=== PATIENT | female | born 1950 | race African-American/Black ===

== ENCOUNTER 2017-11-07 04:17 | Emergency (ER) | payer OTHER, MEDICAID ==
[2017-11-07] MEDS ORDERED: D5 NS 1000 ML 1,000 ML IV ONE (04:19)
[2017-11-07 04:24] VITALS: BMI 46.0
--- NOTE | 2017-11-07 04:25 | DR.GENAD ---
HPI - Complaint/Symptoms Chief Complaint Doctors Comments: Patient states that she was giving herself her insulin and decided to give 10Units; this dose made her glucose to less than 30mg/dl. She was given D50 by EMS; upon arrival her blood glucose 84mg/dl. She was started on D5W, given. Review of medical record patient has bradycardia rate less than 50, and decreased renal function. She is followed by Dr Espinoza mill helper and a lifestyle coordinator is Abdi. PMH - PMH Past Medical History: Diabetes, Renal Disease ROS - Review of Systems Eyes: No Symptoms Reported ENTM: No Symptoms Reported Respiratoy: No Symptoms Reported Cardiovascular: No Symptoms Reported Gastrointestinal/Abdominal: No Symptoms Reported Genitourinary: No Symptoms Reported Neurological: No Symptoms Reported Musculoskeletal: No Symptoms Reported Integumentary: No Symptoms Reported Hematologic/Lymphatic: No Symptoms Reported Endocrine: No Symptoms Reported Psychiatric: No Symptoms Reported All Other Systems: Reviewed and Negative PE - Vital Signs Vitals: Pulse Rate [Apical] 99 Respiratory Rate 16 Blood Pressure [Right Arm] 122/64 Blood Pressure 130/65 O2 Sat by Pulse Oximetry 100 - General General Appearance: Alert, In No Apparent Distress - Head Head Exam: Normal Inspection, Atraumatic - Eyes Eye exam: Normal Appearance, PERRL, EOMI - ENT ENT Exam: Normal Exam External Ear Exam: Normal External Inspection TM/Canal Exam: Bilateral Normal Nose Exam: Normal Nose Exam Mouth Exam: Normal Inspection Throat Exam: Normal Inspection - Chest Chest Inspection: Normal Inspection - Respiratory Respiratory Exam: Normal Lung Sounds Bilat Respiratory Exam: Bilateral Clear to Auscultation - Cardiovascular Cardiovascular Exam: Regular Rate, Normal Rhythm - Abdominal Exam Abdominal Exam: Normal Inspection, Normal Bowel Sounds, Soft Abdominal Tenderness: negative: RUQ, RLQ, LUQ, LLQ, Epigastrium, Suprapubic, Diffuse, Mild, Moderate, Severe, Other - Extremities Extremities Exam: Normal Inspection, Full ROM - Back Back Exam: Normal Inspection - Neurologic Neurological Exam: Alert, Oriented X3, CN II-XII Intact - Psychiatric Psychiatric Exam: Normal Affect, Normal Mood - Skin Skin Exam: Warm, Dry, Intact Course - Treatment Treatment: I spoke with Dr Ruff wound care center consultant for cardiology for Dr Espinoza. He indicated that they will see patient as an outpatient to evaluate her bradycardia. He indicated that she will probably be evaluated for pacemaker. - Reevaluation 1st: Improved ROR - Labs Reviewed Result Diagrams: 11/07/17 04:33 11/07/17 04:33 Laboratory: WBC 4.9 X10^3/uL (3.6-10.0) 11/07/17 04:33 RBC 4.74 X10^6/uL (3.5-5.4) 11/07/17 04:33 Hgb 13.9 g/dL (12.0-16.0) 11/07/17 04:33 Hct 42.4 % (36.0-47.0) 11/07/17 04:33 MCV 89.4 fL (80.0-100.0) 11/07/17 04:33 MCH 29.3 pg (27.0-34.0) 11/07/17 04:33 MCHC 32.8 g/dL (33.0-35.0) L 11/07/17 04:33 RDW 14.4 % (11.6-16.5) 11/07/17 04:33 Plt Count 186 X10^3/uL (150.0-450.0) 11/07/17 04:33 MPV 8.6 fL (7.4-11.0) 11/07/17 04:33 Neut % 43.4 % (42.0-75.0) 11/07/17 04:33 Lymph % 37.9 % (21.0-51.0) 11/07/17 04:33 [place] % 13.9 % (0.0-13.0) H 11/07/17 04:33 Eos % 4.0 % (0.9-2.9) H 11/07/17 04:33 Baso % 0.8 % (0.2-1.0) 11/07/17 04:33 Neut # 2.1 x10^3/uL (2.2-4.8) L 11/07/17 04:33 Lymph # 1.9 X10^3/uL (1.3-2.9) 11/07/17 04:33 [place] # 0.7 x10^3/uL (0.3-0.8) 11/07/17 04:33 Eos # 0.2 x10^3/uL (0.0-0.2) 11/07/17 04:33 Baso # 0.0 X10^3/uL (0.0-0.1) 11/07/17 04:33 Absolute Nucleated RBC 0.1 /100WBC 11/07/17 04:33 Sodium 148 mmol/L (136-145) H 11/07/17 04:33 Corrected Sodium TNP 11/07/17 04:33 Potassium 2.5 mmol/L (3.5-5.1) L* 11/07/17 04:33 Chloride 106 mmol/L (98-107) 11/07/17 04:33 Carbon Dioxide 33.8 mmol/L (21-32) H 11/07/17 04:33 BUN 63 mg/dL (7-18) H 11/07/17 04:33 Creatinine 3.27 mg/dL (0.55-1.02) H 11/07/17 04:33 Est GFR (MDRD) Af Amer 18 (>60) L 11/07/17 04:33 Est GFR (MDRD) Non-Af 15 (>60) L 11/07/17 04:33 Glucose 57 mg/dL (65-99) L 11/07/17 04:33 POC Glucose (mg/dL) 91 mg/dL (65-99) 11/07/17 06:14 Hemoglobin A1c 6.4 % (4.5-6.2) H 11/07/17 04:33 Calcium 8.5 mg/dL (8.5-10.1) 11/07/17 04:33 Corrected Calcium TNP 11/07/17 04:33 Total Bilirubin 0.60 mg/dL (0.2-1.0) 11/07/17 04:33 AST 33 Units/L (15-37) 11/07/17 04:33 ALT 51 Units/L (12-78) 11/07/17 04:33 Alkaline Phosphatase 75 Units/L (46-116) 11/07/17 04:33 Creatine Kinase 435 Units/L (26-192) H 11/07/17 04:33 CK-MB (CK-2) 1.4 ng/mL (0-4.0) 11/07/17 04:33 CK/CKMB % Calc 0.3 % (<4) 11/07/17 04:33 Troponin I 0.02 ng/mL (0-1.5) 11/07/17 04:33 C-Reactive Protein 1.60 mg/L (0-3.0) 11/07/17 04:33 Total Protein 7.4 g/dL (6.4-8.2) 11/07/17 04:33 Albumin 3.6 g/dL (3.4-5.0) 11/07/17 04:33 Globulin 3.8 g/dL (2.5-4.5) 11/07/17 04:33 Albumin/Globulin Ratio 0.9 Ratio (1.1-2.1) L 11/07/17 04:33 - XRAY XRAY Interpreted by: Radiologist (Chest: No acute chest disease identified) - Diagnosis Discharge Problem: Sinus bradycardia, Hypokalemia, Hypoglycemia Chronic renal disease Qualifiers: Chronic kidney disease stage: stage 3 (moderate) Qualified Code(s): N18.3 - Chronic kidney disease, stage 3 (moderate) - Discharge Plan Condition: Stable - Follow ups/Referrals Follow ups/Referrals: NFD,None [Primary Care Provider] - 3 days - Instructions
[2017-11-07 04:43] LABS: BASOPHILS % (AUTO) 0.8 % (0.2-1.0); EOSINOPHILS # (AUTO) 0.2 x10^3/uL (0.0-0.2); HEMATOCRIT 42.4 % (36.0-47.0); HEMOGLOBIN 13.9 g/dL (12.0-16.0); LYMPHOCYTES # (AUTO) 1.9 X10^3/uL (1.3-2.9); LYMPHOCYTES % (AUTO) 37.9 % (21.0-51.0); MEAN CORPUSCULAR HEMOGLOBIN 29.3 pg (27.0-34.0); MEAN CORPUSCULAR HGB CONC 32.8 g/dL (33.0-35.0); MEAN CORPUSCULAR VOLUME 89.4 fL (80.0-100.0); MEAN PLATELET VOLUME 8.6 fL (7.4-11.0); MONOCYTES # (AUTO) 0.7 x10^3/uL (0.3-0.8); MONOCYTES % (AUTO) 13.9 % (0.0-13.0); NEUTROPHILS # (AUTO) 2.1 x10^3/uL (2.2-4.8); NEUTROPHILS % (AUTO) 43.4 % (42.0-75.0); PLATELET COUNT 186 X10^3/uL (150.0-450.0); RED BLOOD COUNT 4.74 X10^6/uL (3.5-5.4); RED CELL DISTRIBUTION WIDTH 14.4 % (11.6-16.5); WHITE BLOOD COUNT 4.9 X10^3/uL (3.6-10.0)
[2017-11-07] MEDS ORDERED: D50W ABBOJECT SYR ONE (04:44)
[2017-11-07] MEDS ORDERED: D50W ABBOJECT SYR IV ONE (04:45)
[2017-11-07 04:48] LABS: BLOOD UREA NITROGEN 63 mg/dL (7-18); CALCIUM 8.5 mg/dL (8.5-10.1); CARBON DIOXIDE 33.8 mmol/L (21-32); CHLORIDE 106 mmol/L (98-107); CREATININE 3.27 mg/dL (0.55-1.02); SODIUM 148 mmol/L (136-145); eGFR BLACK RACES 18 (>60); eGFR NON BLACK RACES 15 (>60)
[2017-11-07 04:52] LABS: ALANINE AMINOTRANSFERASE 51 Units/L (12-78); ALBUMIN 3.6 g/dL (3.4-5.0); ALKALINE PHOSPHATASE 75 Units/L (46-116); ASPARTATE AMINO TRANSFERASE 33 Units/L (15-37); TOTAL PROTEIN 7.4 g/dL (6.4-8.2)
[2017-11-07 04:55] LABS: HEMOGLOBIN A1C 6.4 % (4.5-6.2)
[2017-11-07] MEDS ORDERED: D5 NS 1000 ML 1,000 ML IV SCH (05:00)
[2017-11-07] MEDS ORDERED: K-LYTE EFFERVESCENT PO ONE (05:16)
[2017-11-07] MEDS ORDERED: K-LYTE EFFERVESCENT ONE (05:18)
[2017-11-07] MEDS ORDERED: ATROPINE SULFATE ABBOJECT IVP ONE ×3 (05:19→05:38)
[2017-11-07] MEDS ORDERED: ATROPINE SULFATE ABBOJECT ONE ×2 (05:30→05:33)
[2017-11-07 05:48] LABS: CKMB % 0.3 % (<4); CREATINE KINASE MB 1.4 ng/mL (0-4.0); TROPONIN I 0.02 ng/mL (0-1.5)
--- NOTE | 2017-11-07 06:15 | RAD ---
Examination: Portable AP chest History: Hypoglycemia, hypertension, CHF Comparison reference 09/22/2010 Findings: Normal transverse heart diameter, lungs essentially clear. Mild central vascular pulmonary prominence may be related to the nonstandard technical factors. Impression: No acute chest disease demonstrated. Reported By:
[2017-11-07] MEDS ORDERED: POTASSIUM CHLORIDE LIQ 20 MEQ UDC PO ONE (06:25)
[2017-11-07 07:34] VITALS: BP 170/115
== END 2017-11-07 08:26 | disposition home or self-care (01) ==
LOC: ER 04:19
DX: R00.1 Bradycardia, unspecified (principal); E87.6 Hypokalemia; E16.2 Hypoglycemia, unspecified; N18.3 Chronic kidney disease, stage 3 (moderate)
CPT/HCPCS: 36415; 71010; 80053; 82550; 82553; 83036; 84484; 85025; 86140; 93005; 93010; 96365; 96367; 96374; 96375; 99283; A4222; J3490

== ENCOUNTER 2018-01-04 03:51 | Emergency (ER) | payer OTHER, MEDICAID ==
[2018-01-04 04:02] VITALS: BMI 40.7
[2018-01-04] MEDS ORDERED: TORADOL 60 MG VIAL IM ONE (04:03)
--- NOTE | 2018-01-04 04:06 | DR.GENAD ---
HPI - PCP Primary Care Physician: brittani - HPI Comment HPI Comment: GOT WORSE THIS AM. NO TRAUMA. - Complaint/Symptoms Chief Complaint Doctors Comments: PAIN LEFT ANKLE AND BOTH FEET TIMES SEVERAL HOURS. Chief Complaint:: pt states" my left ankle hurts and both my feets hurt" - Nurses notes reviewed Nurses Notes Review: Yes - Source History Provided: Patient - Mode of Arrival Mode of Arrival: Wheelchair - Timing Onset of Chief Complaint: 01/04/18 Came on: Suddenly - Duration Duration: Constant Duration: Hours - Severity Severity: Moderate PMH - PMH Past Medical History: Yes Past Medical History: Diabetes, Hypertension, Renal Disease Past Surgical History: Yes Surgical History: Cholecystectomy - Family History History of Family Medical Conditions: Yes Family Medical History: Diabetes Mellitus, Hypertension - Social History Do you use any recreational Drugs:: No Lives With: Family Lives Where: Home - infectious screening In the last 2 months have you had wt loss of >10#?: NO Have you had fever, night sweats or hemotysis?: No Have you traveled outside the country in the last 6 months?: No Isolation: Standard ROS - Review of Systems Constitutional: No Symptoms Reported Eyes: No Symptoms Reported ENTM: No Symptoms Reported Respiratoy: No Symptoms Reported Cardiovascular: No Symptoms Reported Gastrointestinal/Abdominal: No Symptoms Reported Genitourinary: No Symptoms Reported Neurological: No Symptoms Reported Musculoskeletal: Left, Leg, Ankle, Foot Integumentary: No Symptoms Reported Hematologic/Lymphatic: No Symptoms Reported Endocrine: No Symptoms Reported All Other Systems: Reviewed and Negative PE - Vital Signs Vitals: Temperature 98.7 F Pulse Rate 65 Respiratory Rate 18 Blood Pressure [Right Arm] 142/62 Blood Pressure 161/70 O2 Sat by Pulse Oximetry 97 - General Limitations: No Limitations General Appearance: Alert - Head Head Exam: Normal Inspection - Eyes Eye exam: Normal Appearance - ENT ENT Exam: Normal External Ear Exam External Ear Exam: Normal External Inspection TM/Canal Exam: Bilateral Normal Nose Exam: Normal Nose Exam Mouth Exam: Normal Inspection Throat Exam: Normal Inspection - Neck Neck Exam: Trachea Midline - Chest Chest Inspection: Symmetric Chest Wall Rise - Respiratory Respiratory Exam: Normal Lung Sounds Bilat Respiratory Exam: Bilateral Rhonchi, Lower Rhonchi - Cardiovascular Cardiovascular Exam: Regular Rate, Normal Rhythm, Normal Heart Sounds - Abdominal Exam Abdominal Exam: Normal Bowel Sounds, Soft. negative: Tenderness - Extremities Extremities Exam: Tenderness (RT LEG TENDERNESS), Joint Swelling (RT ANKLE SWELLING AND TENDERNESS.) - Back Back Exam: Paraspinal Tenderness - Neurologic Neurological Exam: Alert, Oriented X3 - Psychiatric Psychiatric Exam: Normal Affect, Normal Mood - Skin Skin Exam: Normal Color MDM - Additional Information Additional Information Obtained From: Family - Differential Diagnosis Differential Diagnosis: ARTHRITIS, PAIN LOWER EXTREMITIES. Course - Treatment Treatment: SEE ORDERS. - Education/Counseling Education/Counseling: Patient, Family, Education Educated On: Treatment, Diagnosis - Diagnosis Discharge Problem: Arthritis - Discharge Plan Disposition: HOME, SELF-CARE Condition: Stable - Follow ups/Referrals Follow ups/Referrals: EVERETT ROWLEY [Primary Care Provider] - 1 day - Instructions Instructions: Osteoarthritis, Joint Pain, [id number] Additional Instructions: RETURN TO ED IF WORSE.
[2018-01-04] MEDS ORDERED: TORADOL 60 MG VIAL ONE (04:14)
[2018-01-04] MEDS ORDERED: DECADRON INJ ONE (04:59)
[2018-01-04] MEDS ORDERED: DECADRON INJ IM ONE (04:59)
[2018-01-04 06:17] VITALS: BP 142/62
== END 2018-01-04 06:17 | disposition home or self-care (01) ==
LOC: ER 03:51
DX: M19.90 Unspecified osteoarthritis, unspecified site (principal)
CPT/HCPCS: 96372; 99282; J1100; J1885

== ENCOUNTER 2019-02-18 10:43 | Inpatient (IN) ==
[2019-02-18] MEDS ORDERED: DUONEB 0.5 MG/3 MG ONE (11:02)
[2019-02-18] MEDS ORDERED: DUONEB 0.5 MG/3 MG NEB ONE ×2 (11:19→11:30)
[2019-02-18 11:22] LABS: ABG BASE EXCESS 4.3 mmol/L (-2.0-2.0); ABG HCO3 29.8 mmol/L (22-26)
[2019-02-18 11:23] LABS: ABG ALLEN TEST POS
--- NOTE | 2019-02-18 11:28 | DR.SOBA ---
HPI Time Seen Time Seen by Provider: 02/18/19 11:05 Primary Care Physician Primary Care Physician: EVERETT ROWLEY Complaints Chief Complaint Doctors Comments: Patient presents with complaint of dyspnea and left arm pain. She has a history of asthma; on home oxygen 1.5L denies COPD. Chief Complaint:: PT C/O SOB, THAT STARTED LASTNIGHT , PT HAS HX OF ASTHMA, PT HAS EXP WHEEZING ,BR Self Treatment fo Chief Complaint: PT IS ON BP MEDS AND SHE DID NOT TAKE THEM TODAY ,BR Source History Provided: Patient Mode of Arrival Mode of Arrival: Ambulatory Timing Onset of Chief Complaint: 02/17/19 PMH PMH Past Medical History: Yes Past Medical History: Arthritis, Asthma, Diabetes and Hypertension Past Surgical History: Yes Surgical History: Cholecystectomy Family History History of Family Medical Conditions: Yes Family Medical History: Cancer Social History Does patient currently use any type of tobacco product: No Have you used tobacco products in the last 12 months: No Type of Tobacco Use: None Does any household member use tobacco: No Alcohol Use: None Do you use any recreational Drugs:: No Lives With: Family Lives Where: Home infectious screening In the last 2 months have you had wt loss of >10#?: NO Have you had fever, night sweats or hemotysis?: No Have you traveled outside the country in the last 6 months?: No Isolation: Standard PE Vital Signs Vitals: Temperature 96.9 F Pulse Rate 65 Respiratory Rate 22 Blood Pressure [Left Arm] 178/79 Blood Pressure [Right Arm] 154/67 Blood Pressure 163/71 O2 Sat by Pulse Oximetry 99 General Limitations: No Limitations General Appearance: Alert and In No Apparent Distress Head Head Exam: Normal Inspection, Atraumatic and Normocephalic Eyes Eye exam: PERRL ENT ENT Exam: Normal Exam and Normal Oropharynx Neck Neck Exam: Normal Inspection, Full ROM and Trachea Midline Chest Chest Inspection: Normal Inspection, Symmetric Chest Wall Rise and Tenderness Respiratory Respiratory Exam: Normal Lung Sounds Bilat and Accessory Muscle Use Respiratory Exam: Bilateral: Clear to Auscultation Cardiovascular Cardiovascular Exam: Regular Rate and Normal Rhythm Abdominal Exam Abdominal Exam: Normal Inspection and Normal Bowel Sounds Abdominal Tenderness: RUQ Extremities Extremities Exam: Tenderness (left forearm and shoulder) Back Back Exam: Normal Inspection Neurologic Neurological Exam: Alert, Oriented X3 and CN II-XII Intact Psychiatric Psychiatric Exam: Normal Affect and Normal Mood Skin Skin Exam: Warm, Dry and Intact COURSE Treatment Treatment: DuoNeb, Lasix 40mg PO Reevaluation 1st: Improved Consultation Called: 13:25 Consultation Comments: Dr. Roque agreed to admit to admit for further evaluation of CHF ROR Labs Reviewed Laboratory Results Reviewed?: Yes Result Diagrams: 02/18/19 11:28 02/18/19 11:28 Laboratory: WBC 8.1 X10^3/uL (3.6-10.0) 02/18/19 11:28 RBC 4.30 X10^6/uL (3.5-5.4) 02/18/19 11:28 Hgb 12.8 g/dL (12.0-16.0) 02/18/19 11:28 Hct 39.4 % (36.0-47.0) 02/18/19 11:28 MCV 91.5 fL (80.0-100.0) 02/18/19 11:28 MCH 29.8 pg (27.0-34.0) 02/18/19 11:28 MCHC 32.6 g/dL (33.0-35.0) L 02/18/19 11:28 RDW 14.7 % (11.6-16.5) 02/18/19 11:28 Plt Count 269 X10^3/uL (150.0-450.0) 02/18/19 11:28 MPV 7.8 fL (7.4-11.0) 02/18/19 11:28 Neut % (Auto) 76.6 % (42.0-75.0) H 02/18/19 11:28 Lymph % (Auto) 9.9 % (21.0-51.0) L 02/18/19 11:28 [place] % (Auto) 9.0 % (0.0-13.0) 02/18/19 11:28 Eos % (Auto) 3.9 % (0.9-2.9) H 02/18/19 11:28 Baso % (Auto) 0.6 % (0.2-1.0) 02/18/19 11:28 Neut # (Auto) 6.2 x10^3/uL (2.2-4.8) H 02/18/19 11:28 Lymph # (Auto) 0.8 X10^3/uL (1.3-2.9) L 02/18/19 11:28 [place] # (Auto) 0.7 x10^3/uL (0.3-0.8) 02/18/19 11:28 Eos # (Auto) 0.3 x10^3/uL (0.0-0.2) H 02/18/19 11:28 Baso # (Auto) 0.0 X10^3/uL (0.0-0.1) 02/18/19 11:28 Absolute Nucleated RBC 0.1 /100WBC 02/18/19 11:28 D-Dimer 1610 ng/mL (0-400) H* 02/18/19 11:28 Sample Site Rrad 02/18/19 11:14 ABG pH 7.410 (7.35-7.45) 02/18/19 11:14 ABG pCO2 47.0 mmHg (35.0-45.0) H 02/18/19 11:14 ABG pO2 34.0 mmHg (80.0-100.0) L* 02/18/19 11:14 ABG HCO3 29.8 mmol/L (22-26) H 02/18/19 11:14 ABG O2 Saturation 66.0 % (90-100) L* 02/18/19 11:14 ABG Base Excess 4.3 mmol/L (-2.0-2.0) H 02/18/19 11:14 Aakash Test Pos 02/18/19 11:14 A-a Gradient 57.0 mmHg 02/18/19 11:14 FiO2 21.0 02/18/19 11:14 Sodium 148 mmol/L (136-145) H 02/18/19 11:28 Corrected Sodium TNP 02/18/19 11:28 Potassium 3.8 mmol/L (3.5-5.1) 02/18/19 11:28 Chloride 110 mmol/L (98-107) H 02/18/19 11:28 Carbon Dioxide 28.9 mmol/L (21-32) 02/18/19 11:28 BUN 27 mg/dL (7-18) H 02/18/19 11:28 Creatinine 1.70 mg/dL (0.55-1.02) H 02/18/19 11:28 Est GFR (MDRD) Af Amer 38 (>60) L 02/18/19 11:28 Est GFR (MDRD) Non-Af 32 (>60) L 02/18/19 11:28 Glucose 80 mg/dL (65-99) 02/18/19 11:28 Calcium 9.1 mg/dL (8.5-10.1) 02/18/19 11:28 Corrected Calcium TNP 02/18/19 11:28 Total Bilirubin 1.20 mg/dL (0.2-1.0) H 02/18/19 11:28 AST 21 Units/L (15-37) 02/18/19 11:28 ALT 25 Units/L (12-78) 02/18/19 11:28 Alkaline Phosphatase 90 Units/L (46-116) 02/18/19 11:28 Total Protein 8.2 g/dL (6.4-8.2) 02/18/19 11:28 Albumin 3.5 g/dL (3.4-5.0) 02/18/19 11:28 Globulin 4.7 g/dL (2.5-4.5) H 02/18/19 11:28 Albumin/Globulin Ratio 0.7 Ratio (1.1-2.1) L 02/18/19 11:28 Other Results Comments: Chest; There has been development of diffuse opacity in both l ungs, possible due to underlying congestive heart failure or multifocal pneumonia or combination there of. Moderate cardiomegaly is noted. No acute bony abnormalities are identified. Impression: Moderate cardiomegaly. Diffusely increased lung markings suggesting mild to moderate congestive heart failure versus multifocal pneumonia superimposed on congestive heart failure. Clinical correlation is recommended. XRAY XRAY Interpreted by: Radiologist
[2019-02-18 11:35] LABS: BASOPHILS % (AUTO) 0.6 % (0.2-1.0); EOSINOPHILS # (AUTO) 0.3 x10^3/uL (0.0-0.2); EOSINOPHILS % (AUTO) 3.9 % (0.9-2.9); HEMATOCRIT 39.4 % (36.0-47.0); HEMOGLOBIN 12.8 g/dL (12.0-16.0); LYMPHOCYTES # (AUTO) 0.8 X10^3/uL (1.3-2.9); LYMPHOCYTES % (AUTO) 9.9 % (21.0-51.0); MEAN CORPUSCULAR HEMOGLOBIN 29.8 pg (27.0-34.0); MEAN CORPUSCULAR HGB CONC 32.6 g/dL (33.0-35.0); MEAN CORPUSCULAR VOLUME 91.5 fL (80.0-100.0); MEAN PLATELET VOLUME 7.8 fL (7.4-11.0); MONOCYTES # (AUTO) 0.7 x10^3/uL (0.3-0.8); NEUTROPHILS # (AUTO) 6.2 x10^3/uL (2.2-4.8); NEUTROPHILS % (AUTO) 76.6 % (42.0-75.0); PLATELET COUNT 269 X10^3/uL (150.0-450.0); RED CELL DISTRIBUTION WIDTH 14.7 % (11.6-16.5); WHITE BLOOD COUNT 8.1 X10^3/uL (3.6-10.0)
[2019-02-18] MEDS ORDERED: CATAPRES TAB 0.1 MG PO ONE ×2 (11:40→12:21)
[2019-02-18] MEDS ORDERED: CATAPRES TAB 0.1 MG ONE ×2 (11:41→12:09)
[2019-02-18] MEDS ORDERED: TORADOL 60 MG VIAL IM ONE (11:44)
[2019-02-18] MEDS ORDERED: TORADOL 60 MG VIAL ONE (11:45)
[2019-02-18 11:46] LABS: ALANINE AMINOTRANSFERASE 25 Units/L (12-78); ALBUMIN 3.5 g/dL (3.4-5.0); ALKALINE PHOSPHATASE 90 Units/L (46-116); ASPARTATE AMINO TRANSFERASE 21 Units/L (15-37); BLOOD UREA NITROGEN 27 mg/dL (7-18); CALCIUM 9.1 mg/dL (8.5-10.1); CARBON DIOXIDE 28.9 mmol/L (21-32); CHLORIDE 110 mmol/L (98-107); SODIUM 148 mmol/L (136-145); TOTAL PROTEIN 8.2 g/dL (6.4-8.2); eGFR NON BLACK RACES 32 (>60)
--- NOTE | 2019-02-18 12:21 | RAD ---
HISTORY: Dyspnea Study: PA and lateral chest Comparison: 11/07/2017 Findings: There has been development of diffuse opacity in both lungs, possibly due to underlying congestive heart failure or multifocal pneumonia or combination there of. Moderate cardiomegaly is noted. No acute bony abnormalities are identified. IMPRESSION: 1. Moderate cardiomegaly. 2. Diffusely increased lung markings suggesting [id number] congestive heart failure versus multifocal pneumonia superimposed on congestive heart failure. Clinical correlation is recommended. Reported By:
[2019-02-18] MEDS ORDERED: LASIX IVP ONE ×3 (12:47→14:11)
[2019-02-18] MEDS ORDERED: ZESTRIL TAB 40 MG PO SCH (15:00)
[2019-02-18] MEDS ORDERED: ZESTRIL TAB 10 MG PO SCH (15:00)
[2019-02-18] MEDS ORDERED: COREG TAB 12.5 MG PO SCH (15:00)
[2019-02-18] MEDS ORDERED: TYLENOL #3 TAB (W/CODEINE) PO PRN (15:19)
[2019-02-18] MEDS ORDERED: VITAMIN D (1.25MG) PO SCH (15:19)
[2019-02-18] MEDS: DUONEB 0.5 MG/3 MG NEB SCH ×2 (17:32→20:38)
[2019-02-18] MEDS: COREG TAB 12.5 MG PO SCH (20:32)
[2019-02-18] MEDS: PULMICORT NEB TX 0.5 MG NEB SCH (20:38)
[2019-02-18] MEDS ORDERED: AMOXICILLIN 875 MG PO SCH (21:00)
[2019-02-18] MEDS ORDERED: LASIX IVP SCH (21:00)
[2019-02-19] MEDS: DUONEB 0.5 MG/3 MG NEB SCH ×6 (00:34→20:44)
[2019-02-19 05:39] LABS: ALANINE AMINOTRANSFERASE 22 Units/L (12-78); ALKALINE PHOSPHATASE 72 Units/L (46-116); ASPARTATE AMINO TRANSFERASE 18 Units/L (15-37); BLOOD UREA NITROGEN 30 mg/dL (7-18); CALCIUM 8.8 mg/dL (8.5-10.1); CARBON DIOXIDE 30.3 mmol/L (21-32); CHLORIDE 109 mmol/L (98-107); COR CA(FOR HYPOALB) 9.6 mg/dL (8.5-10.1); SODIUM 146 mmol/L (136-145); TOTAL PROTEIN 7.2 g/dL (6.4-8.2); eGFR NON BLACK RACES 26 (>60)
[2019-02-19 06:23] LABS: BASOPHILS % (AUTO) 0.7 % (0.2-1.0); EOSINOPHILS # (AUTO) 0.3 x10^3/uL (0.0-0.2); EOSINOPHILS % (AUTO) 4.9 % (0.9-2.9); HEMATOCRIT 33.4 % (36.0-47.0); LYMPHOCYTES # (AUTO) 1.3 X10^3/uL (1.3-2.9); LYMPHOCYTES % (AUTO) 21.9 % (21.0-51.0); MEAN CORPUSCULAR HEMOGLOBIN 29.8 pg (27.0-34.0); MEAN CORPUSCULAR HGB CONC 32.9 g/dL (33.0-35.0); MEAN CORPUSCULAR VOLUME 90.8 fL (80.0-100.0); MEAN PLATELET VOLUME 8.4 fL (7.4-11.0); MONOCYTES # (AUTO) 0.6 x10^3/uL (0.3-0.8); MONOCYTES % (AUTO) 10.2 % (0.0-13.0); NEUTROPHILS # (AUTO) 3.6 x10^3/uL (2.2-4.8); NEUTROPHILS % (AUTO) 62.3 % (42.0-75.0); PLATELET COUNT 237 X10^3/uL (150.0-450.0); RED BLOOD COUNT 3.68 X10^6/uL (3.5-5.4); RED CELL DISTRIBUTION WIDTH 14.9 % (11.6-16.5); WHITE BLOOD COUNT 5.8 X10^3/uL (3.6-10.0)
[2019-02-19 08:46] VITALS: BMI 42.5
[2019-02-19] MEDS: COREG TAB 12.5 MG PO SCH ×2 (08:47→20:16)
[2019-02-19] MEDS: PRAVACHOL PO SCH (08:48)
[2019-02-19] MEDS ORDERED: INSULIN DEGLUDEC 55 UNIT subcut SCH (09:00)
[2019-02-19] MEDS: PULMICORT NEB TX 0.5 MG NEB SCH ×2 (09:11→20:44)
[2019-02-19] MEDS: SNACK - Diabetic Appropriate PO SCH (20:16)
[2019-02-19] MEDS: ULTRAM PO PRN (20:16)
[2019-02-19] MEDS ORDERED: ZANTAC ONE (23:06)
[2019-02-19] MEDS ORDERED: CATAPRES TAB 0.1 MG ONE (23:08)
[2019-02-19] MEDS: ZANTAC PO SCH (23:17)
[2019-02-20] MEDS: ULTRAM PO PRN (00:50)
[2019-02-20] MEDS: XOPENEX 1.25 MG/3 ML NEBULE NEB SCH ×4 (00:54→17:02)
[2019-02-20] MEDS ORDERED: VISTARIL PO PRN (01:14)
[2019-02-20] MEDS ORDERED: VISTARIL PO ONE (01:15)
[2019-02-20 07:16] LABS: BASOPHILS % (AUTO) 0.3 % (0.2-1.0); EOSINOPHILS # (AUTO) 0.3 x10^3/uL (0.0-0.2); EOSINOPHILS % (AUTO) 4.1 % (0.9-2.9); HEMATOCRIT 34.2 % (36.0-47.0); HEMOGLOBIN 11.2 g/dL (12.0-16.0); LYMPHOCYTES # (AUTO) 1.1 X10^3/uL (1.3-2.9); LYMPHOCYTES % (AUTO) 15.2 % (21.0-51.0); MEAN CORPUSCULAR HEMOGLOBIN 29.5 pg (27.0-34.0); MEAN CORPUSCULAR HGB CONC 32.6 g/dL (33.0-35.0); MEAN CORPUSCULAR VOLUME 90.5 fL (80.0-100.0); MEAN PLATELET VOLUME 8.6 fL (7.4-11.0); MONOCYTES # (AUTO) 0.7 x10^3/uL (0.3-0.8); MONOCYTES % (AUTO) 9.5 % (0.0-13.0); NEUTROPHILS # (AUTO) 5.1 x10^3/uL (2.2-4.8); NEUTROPHILS % (AUTO) 70.9 % (42.0-75.0); PLATELET COUNT 243 X10^3/uL (150.0-450.0); RED BLOOD COUNT 3.78 X10^6/uL (3.5-5.4); WHITE BLOOD COUNT 7.3 X10^3/uL (3.6-10.0)
[2019-02-20 07:21] LABS: ALANINE AMINOTRANSFERASE 23 Units/L (12-78); ALBUMIN 2.9 g/dL (3.4-5.0); ALKALINE PHOSPHATASE 72 Units/L (46-116); ASPARTATE AMINO TRANSFERASE 19 Units/L (15-37); BLOOD UREA NITROGEN 29 mg/dL (7-18); CALCIUM 8.6 mg/dL (8.5-10.1); CARBON DIOXIDE 27.7 mmol/L (21-32); CHLORIDE 106 mmol/L (98-107); COR CA(FOR HYPOALB) 9.5 mg/dL (8.5-10.1); CREATININE 1.64 mg/dL (0.55-1.02); SODIUM 142 mmol/L (136-145); TOTAL PROTEIN 7.2 g/dL (6.4-8.2); eGFR NON BLACK RACES 33 (>60)
--- NOTE | 2019-02-20 08:08 | RAD ---
HISTORY: Follow-up congestive heart failure Study: Chest AP portable Comparison: 02/18/2019 Findings: The heart remains enlarged. The previously noted congestive heart failure appears to have resolved. No acute alveolar infiltrates are identified. A small left pleural effusion may be present. The bony thorax is unremarkable. IMPRESSION: Continued cardiomegaly but without congestive heart failure on today's examination Reported By:
[2019-02-20] MEDS ORDERED: PEPCID TAB 20 MG PO SCH (09:00)
[2019-02-20] MEDS: COREG TAB 12.5 MG PO SCH ×2 (10:03→20:27)
[2019-02-20] MEDS: PRAVACHOL PO SCH (10:04)
[2019-02-20] MEDS ORDERED: LEXAPRO ONE (11:15)
[2019-02-20] MEDS: LEXAPRO PO SCH (11:37)
[2019-02-20] MEDS: PULMICORT NEB TX 0.5 MG NEB SCH ×2 (12:08→21:01)
[2019-02-20] MEDS ORDERED: NORCO 7.5/325 MG TAB PO SCH (14:00)
[2019-02-20] MEDS ORDERED: NORCO 7.5/325 MG TAB PO PRN (14:34)
--- NOTE | 2019-02-20 14:51 | VAS ---
VENOUS ULTRASOUND DOPPLER EXAMINATION OF THE LEFT UPPER EXTREMITY HISTORY: Severe left arm swelling Comparison: None TECHNIQUE: Multiple hernandez scale and color flow Doppler images of the deep venous system were obtained of the left upper extremity. FINDINGS: The deep venous system of the left upper extremity was evaluated from the level of the internal jugular vein through the antecubital fossa. Normal color flow and augmentation can be observed. In addition, normal compression is seen throughout the deep venous system. IMPRESSION: 1. Negative for DVT. Reported By:
[2019-02-20] MEDS: LOVENOX INJ 30 MG SYR SC SCH ×2 (18:34→20:07)
[2019-02-20] MEDS: SNACK - Diabetic Appropriate PO SCH (20:26)
[2019-02-20] MEDS: ZANTAC PO SCH (20:27)
[2019-02-21] MEDS: XOPENEX 1.25 MG/3 ML NEBULE NEB SCH ×3 (00:58→11:55)
[2019-02-21 06:14] LABS: BASOPHILS % (AUTO) 0.5 % (0.2-1.0); EOSINOPHILS # (AUTO) 0.3 x10^3/uL (0.0-0.2); EOSINOPHILS % (AUTO) 6.6 % (0.9-2.9); HEMATOCRIT 33.7 % (36.0-47.0); HEMOGLOBIN 10.9 g/dL (12.0-16.0); LYMPHOCYTES # (AUTO) 1.2 X10^3/uL (1.3-2.9); LYMPHOCYTES % (AUTO) 23.8 % (21.0-51.0); MEAN CORPUSCULAR HEMOGLOBIN 29.6 pg (27.0-34.0); MEAN CORPUSCULAR HGB CONC 32.4 g/dL (33.0-35.0); MEAN CORPUSCULAR VOLUME 91.2 fL (80.0-100.0); MEAN PLATELET VOLUME 8.4 fL (7.4-11.0); MONOCYTES # (AUTO) 0.7 x10^3/uL (0.3-0.8); MONOCYTES % (AUTO) 14.2 % (0.0-13.0); NEUTROPHILS # (AUTO) 2.7 x10^3/uL (2.2-4.8); NEUTROPHILS % (AUTO) 54.9 % (42.0-75.0); PLATELET COUNT 236 X10^3/uL (150.0-450.0); RED BLOOD COUNT 3.69 X10^6/uL (3.5-5.4); RED CELL DISTRIBUTION WIDTH 14.8 % (11.6-16.5); WHITE BLOOD COUNT 4.9 X10^3/uL (3.6-10.0)
--- NOTE | 2019-02-21 06:38 | RAD ---
HISTORY: Follow-up congestive heart failure Study: Chest AP portable Comparison: 02/20/2019 Findings: The heart remains enlarged. No definite congestive heart failure is present on today's examination. No definite acute alveolar infiltrates or pleural effusions are identified. The bony thorax is unremarkable. IMPRESSION: Continued cardiomegaly without congestive heart failure or acute infiltrates Reported By:
[2019-02-21 06:42] LABS: ALBUMIN 2.9 g/dL (3.4-5.0); CALCIUM 8.7 mg/dL (8.5-10.1); CARBON DIOXIDE 27.3 mmol/L (21-32); COR CA(FOR HYPOALB) 9.6 mg/dL (8.5-10.1); CREATININE 1.68 mg/dL (0.55-1.02); TOTAL PROTEIN 7.1 g/dL (6.4-8.2)
[2019-02-21] MEDS ORDERED: LEXAPRO ONE (07:26)
[2019-02-21] MEDS: LEXAPRO PO SCH (08:28)
[2019-02-21] MEDS: COREG TAB 12.5 MG PO SCH (08:28)
[2019-02-21] MEDS: PRAVACHOL PO SCH (08:28)
[2019-02-21] MEDS: LOVENOX INJ 30 MG SYR SC SCH (08:29)
[2019-02-21] MEDS: PULMICORT NEB TX 0.5 MG NEB SCH (11:55)
--- NOTE | 2019-02-21 15:12 | NM ---
HISTORY: Hypoxia, D-dimer 1610 Study: Nuclear Medicine Ventilation Perfusion Study Comparison: Chest radiograph from same day Technique: After the administration of 5.4 mCi of technetium 99m MAA followed by inhalation of 30.4 mCi of technetium 99m DTPA, anterior, posterior, and lateral perfusion and ventilation images were submitted. Findings: Evaluation of perfusion physiology demonstrates no significant segmental or subsegmental defect to suggest pulmonary embolus. Likewise, ventilation physiology is unremarkable with homogeneous radiotracer throughout the right and left hemithorax. Cardiac silhouette is enlarged. IMPRESSION: Low probability for acute PE. Reported By:
[2019-02-21 15:57] VITALS: BP 147/71
== END 2019-02-21 16:35 | disposition home health service (06) | DRG 293 ==
LOC: ER 10:43 → MED/SURG 13:48
PROVIDERS: ADMIT Obstetrics & Gynecology Obstetrics; ATTEND Obstetrics & Gynecology Obstetrics
DX: M79.603 Pain in arm, unspecified; E11.65 Type 2 diabetes mellitus with hyperglycemia; R06.02 Shortness of breath; R94.31 Abnormal electrocardiogram [ECG] [EKG]; M13.89 Other specified arthritis, multiple sites; Z99.81 Dependence on supplemental oxygen; I50.30 Unspecified diastolic (congestive) heart failure; I11.0 Hypertensive heart disease with heart failure; J45.998 Other asthma
CPT/HCPCS: 36415; 36600; 71010; 71045; 78582; 80053; 82803; 85025; 85378; 87070; 87205; 93005; 93306; 93971; 94640; 94660; 94760; 96365; 96372; 96374; 99284; A4216; A4222; A4618; A7030; Q0177; J1650; J1885; J1940; J7620; J7626

== ENCOUNTER 2019-08-03 20:32 | Inpatient (IN) ==
[2019-08-03] MEDS ORDERED: SOLU-Medrol 125 MG VIAL IVP ONE (20:55)
[2019-08-03] MEDS ORDERED: DUONEB 0.5 MG/3 MG NEB ONE (20:55)
[2019-08-03] MEDS ORDERED: LASIX IVP ONE ×2 (20:56→21:03)
[2019-08-03] MEDS ORDERED: CATAPRES TAB 0.2 MG PO ONE (20:57)
[2019-08-03 20:58] LABS: ABG BASE EXCESS 7.6 mmol/L (-2.0-2.0)
[2019-08-03 20:59] LABS: ABG ALLEN TEST POS; ABG HCO3 33.2 mmol/L (22-26)
[2019-08-03] MEDS ORDERED: CATAPRES TAB 0.2 MG ONE (21:03)
[2019-08-03] MEDS ORDERED: SOLU-Medrol 125 MG VIAL ONE (21:03)
--- NOTE | 2019-08-03 21:03 | DR.GENAD ---
HPI - PCP Primary Care Physician: HALLEY - Complaint/Symptoms Chief Complaint Doctors Comments: Patient brought by EMS on c-pap with patient complaining of having problems breathing at home with her )2 sat at 66% with patient having respiratory distress. Patient id complaining of her feet swelling with SOB but denies chest pain, cold, cough, fever or chills. States she is on two liters nasal oxygen at home and had nebulizers but has not had a treatment today. Patient denies chest pain or any recent trauma. she denies tobacco, alcohol or drug usage. States she is taking medicines for her blood pressure. Chief Complaint:: PATIENT BROUGHT IN EMS BY STRETCHER ON CPAP. EMS STATED THAT WHEN THEY ARRIVED PATIENT WAS IN RESPIRATORY DISTRESS O2 66% ON ROOM AIR C/O DIFFICULTY BREATHING AND RIGHT FOOT PAIN. - Nurses notes reviewed Nurses Notes Review: Yes - Source History Provided: Patient, Family Member, EMS - Mode of Arrival Mode of Arrival: Stretcher - Timing Onset of Chief Complaint: 08/03/19 Came on: Suddenly - Duration Duration: Constant How lon Duration: Hours - Location Location: shortness of breath - Severity Severity: Severe - Modifying Factors Worsens:: nothing Improves:: nothing PMH - PMH Past Medical History: Yes Past Medical History: Hypertension, Diabetes, Asthma, Arthritis Past Surgical History: Yes Surgical History: Cholecystectomy - Family History History of Family Medical Conditions: Yes Family Medical History: Diabetes Mellitus, Cancer, Coronary Artery Disease, Hypertension - Social History Alcohol Use: None Do you use any recreational Drugs:: No Lives Where: Home - infectious screening Have you traveled outside the country in the last 6 months?: No ROS - Review of Systems Constitutional: No Symptoms Reported Eyes: No Symptoms Reported ENTM: No Symptoms Reported Respiratoy: No Symptoms Reported, Non-Productive Cough, Short of Breath, Wheezing Cardiovascular: No Symptoms Reported, Edema. negative: See HPI, Chest Pain, Palpitations, Syncope, Cyanosis, Skin Mottling, Other Gastrointestinal/Abdominal: No Symptoms Reported. negative: See HPI, Abdominal Pain, Constipation, Diarrhea, Nausea, Vomiting, Food Intolerance, Other Genitourinary: No Symptoms Reported. negative: See HPI, Discharge, Dysuria, Frequency, Hematuria, Pain, Bleeding, Other Neurological: No Symptoms Reported, Problems Walking (foot pain) Musculoskeletal: No Symptoms Reported Integumentary: No Symptoms Reported Hematologic/Lymphatic: No Symptoms Reported. negative: See HPI, Anemia, Blood Clots, Easy Bleeding, Easy Bruising, Swollen Glands, Lymphadenopathy, Other Endocrine: No Symptoms Reported Psychiatric: No Symptoms Reported. negative: See HPI, Anxiety, Depression, Hallucinations, Excessive crying, Suicidal, Other PE - General Limitations: No Limitations General Appearance: Alert, In Distress (moderate) - Head Head Exam: Normal Inspection, Atraumatic, Normocephalic - Eyes Eye exam: Normal Appearance, PERRL, EOMI. negative: Scleral Icterus, Conjunctival Injection, Nystagmus, Miosis, Mydrasis, Periorbital Swelling, Periorbital Tenderness, Other - ENT ENT Exam: Normal Exam, Normal Oropharynx, Normal External Ear Exam, Mucous Membranes Moist, TM's Normal Bilaterally External Ear Exam: Normal External Inspection TM/Canal Exam: Bilateral Normal Nose Exam: Normal Nose Exam Mouth Exam: Normal Inspection. negative: Drooling, Trismus, Lip Swelling, Tongue Elevation, Tongue Swelling, Laceration, Other Throat Exam: Normal Inspection - Neck Neck Exam: Normal Inspection, Full ROM, Trachea Midline - Chest Chest Inspection: Normal Inspection, Symmetric Chest Wall Rise - Respiratory Respiratory Exam: Normal Lung Sounds Bilat, Prolonged Expiratory Phase Respiratory Exam: Bilateral Clear to Auscultation, Bilateral Wheezing, Bilateral Decreased Breath Sounds, Right Rales - Cardiovascular Cardiovascular Exam: Regular Rate, Normal Rhythm, Normal Heart Sounds, Systolic Murmur - Abdominal Exam Abdominal Exam: Normal Inspection, Normal Bowel Sounds, Soft. negative: Distention, Tenderness, Guarding, Rebound, Rigidity, Dimnished Bowel Sounds, Hyperactive Bowel Sounds, Hypoactive Bowel Sounds, Organomegaly, Trauma, Incision, Ascites, Mass, Bruit, Pulsatile Mass, Hernia, Other Abdominal Tenderness: negative: RUQ, RLQ, LUQ, LLQ, Epigastrium, Suprapubic, Diffuse, Mild, Moderate, Severe, Other - Extremities Extremities Exam: Normal Inspection, Full ROM, Tenderness (feet tender on palpation; warm with slight swelling), Normal Capillary Refill, Edema, Joint Swelling - Back Back Exam: Normal Inspection, Full ROM. negative: Tenderness, (R) CVA Tende rness, (L) CVA Tenderness, Muscle Spasm, Paraspinal Tenderness, Vertebral Tenderness, Rashes, (R) Sciatic Notch Tenderness, (L) Sciatic Notch Tendern, (R) Straight Leg Raise, (L) Straight Leg Raise, Other - Neurologic Neurological Exam: Alert, Oriented X3, CN II-XII Intact, Reflexes Normal. negative: Normal Gait (gait not tested) - Psychiatric Psychiatric Exam: Normal Affect, Normal Mood. negative: Depressed, Agitated, Anxious, Flat Affect, Manic, Homicidal Ideation, Suicidal Ideation, Other - Skin Skin Exam: Warm, Dry, Intact, Normal Color. negative: Rash, Cyanosis, Diapho resis, Erythema, Pallor, Mottled, Other - Vital Signs Vitals: Temperature 98.6 F Pulse Rate [Brachial] 80 Pulse Rate 66 Respiratory Rate 25 Blood Pressure [Left Arm] 196/81 Blood Pressure [Right Arm] 147/71 Blood Pressure 151/67 O2 Sat by Pulse Oximetry 95 Course - Reevaluation 1st: Improved - Consultation Called: 22:46 Call Returned: 22:46 (Dr. Acosta to admit) - Education/Counseling Education/Counseling: Patient, Family Educated On: Treatment, Diagnosis, Needs for Follow Up ROR - Labs Reviewed Laboratory Results Reviewed?: Yes (All labs and x-ray results reviewed and discussed with patient.) Result Diagrams: 08/03/19 21:06 08/03/19 21:06 - XRAY XRAY Interpreted by: Self (CXR: Cardiomegaly; increased marking hilar area;no acute infiltrate noted.) - EKG Rate: 81 [place]: Normal Rhythm: NSR Block: LBBB ST: Nonsp - Labs Reviewed Laboratory: WBC 10.9 X10^3/uL (3.6-10.0) H 08/03/19 21:06 RBC 3.75 X10^6/uL (3.5-5.4) 08/03/19 21:06 Hgb 11.1 g/dL (12.0-16.0) L 08/03/19 21:06 Hct 34.4 % (36.0-47.0) L 08/03/19 21:06 MCV 91.6 fL (80.0-100.0) 08/03/19 21:06 MCH 29.5 pg (27.0-34.0) 08/03/19 21:06 MCHC 32.2 g/dL (33.0-35.0) L 08/03/19 21:06 RDW 18.4 % (11.6-16.5) H 08/03/19 21:06 Plt Count 358 X10^3/uL (150.0-450.0) 08/03/19 21:06 MPV 7.8 fL (7.4-11.0) 08/03/19 21:06 Neut % (Auto) 74.6 % (42.0-75.0) 08/03/19 21:06 Lymph % (Auto) 10.0 % (21.0-51.0) L 08/03/19 21:06 [place] % (Auto) 14.2 % (0.0-13.0) H 08/03/19 21:06 Eos % (Auto) 0.8 % (0.9-2.9) L 08/03/19 21:06 Baso % (Auto) 0.4 % (0.2-1.0) 08/03/19 21:06 Neut # (Auto) 8.1 x10^3/uL (2.2-4.8) H 08/03/19 21:06 Lymph # (Auto) 1.1 X10^3/uL (1.3-2.9) L 08/03/19 21:06 [place] # (Auto) 1.6 x10^3/uL (0.3-0.8) H 08/03/19 21:06 Eos # (Auto) 0.1 x10^3/uL (0.0-0.2) 08/03/19 21:06 Baso # (Auto) 0.0 X10^3/uL (0.0-0.1) 08/03/19 21:06 Absolute Nucleated RBC 0.3 /100WBC 08/03/19 21:06 PT 15.5 SECONDS (11.8-14.3) 08/03/19 21:06 INR Target Range - 08/03/19 21:06 INR 1.28 (0.8-1.3) 08/03/19 21:06 APTT 27.1 SECONDS (22.9-36.5) 08/03/19 21:06 PTT Comment - 08/03/19 21:06 Sample Site Lra 08/03/19 20:54 ABG pH 7.430 (7.35-7.45) 08/03/19 20:54 ABG pCO2 50.0 mmHg (35.0-45.0) H 08/03/19 20:54 ABG pO2 65.0 mmHg (80.0-100.0) L 08/03/19 20:54 ABG HCO3 33.2 mmol/L (22-26) H* 08/03/19 20:54 ABG O2 Saturation 93.0 % (90-100) 08/03/19 20:54 ABG Base Excess 7.6 mmol/L (-2.0-2.0) H 08/03/19 20:54 Aakash Test Pos 08/03/19 20:54 A-a Gradient 229.0 mmHg 08/03/19 20:54 FiO2 50.0 08/03/19 20:54 Blood Gas Comments Pt [place] well eb 08/03/19 20:54 Sodium 141 mmol/L (136-145) 08/03/19 21:06 Corrected Sodium 142 mmol/L (136-145) 08/03/19 21:06 Potassium 4.1 mmol/L (3.5-5.1) 08/03/19 21:06 Chloride 102 mmol/L (98-107) 08/03/19 21:06 Carbon Dioxide 32.2 mmol/L (21-32) H 08/03/19 21:06 BUN 55 mg/dL (7-18) H 08/03/19 21:06 Creatinine 2.38 mg/dL (0.55-1.02) H 08/03/19 21:06 Est GFR (MDRD) Af Amer 26 (>60) L 08/03/19 21:06 Est GFR (MDRD) Non-Af 21 (>60) L 08/03/19 21:06 Glucose 134 mg/dL (65-99) H 08/03/19 21:06 Uric Acid 10.4 mg/dL (2.6-6.0) H 08/03/19 21:06 Calcium 8.8 mg/dL (8.5-10.1) 08/03/19 21:06 Corrected Calcium TNP 08/03/19 21:06 Magnesium 2.3 mg/dL (1.7-2.9) 08/03/19 21:06 Total Bilirubin 1.10 mg/dL (0.2-1.0) H 08/03/19 21:06 AST 18 Units/L (15-37) 08/03/19 21:06 ALT 21 Units/L (12-78) 08/03/19 21:06 Alkaline Phosphatase 113 Units/L (46-116) 08/03/19 21:06 Creatine Kinase 108 Units/L (26-192) 08/03/19 21:06 CK-MB (CK-2) < 1.0 ng/mL (0-4.0) 08/03/19 21:06 CK/CKMB % Calc 0.9 % (<4) 08/03/19 21:06 Troponin I 0.04 ng/mL (0-1.5) 08/03/19 21:06 B-Natriuretic Peptide 1130 pg/mL (0-79) H* 08/03/19 21:06 Total Protein 8.5 g/dL (6.4-8.2) H 08/03/19 21:06 Albumin 3.4 g/dL (3.4-5.0) 08/03/19 21:06 Globulin 5.1 g/dL (2.5-4.5) H 08/03/19 21:06 Albumin/Globulin Ratio 0.7 Ratio (1.1-2.1) L 08/03/19 21:06 Specimen Type Catherized urine 08/03/19 21:46 Urine Color Yellow (YELLOW) 08/03/19 21:46 Urine Appearance Clear (CLEAR) 08/03/19 21:46 Urine pH 6.0 (5.0 - 8.0) 08/03/19 21:46 Ur Specific [place] 1.005 (1.000-1.030) 08/03/19 21:46 Urine Protein 2+ (NEGATIVE) 08/03/19 21:46 Urine Glucose (UA) Negative (NEGATIVE) 08/03/19 21:46 Urine Ketones Negative (NEGATIVE) 08/03/19 21:46 Urine Occult Blood 1+ (NEGATIVE) 08/03/19 21:46 Urine Nitrite Negative (NEGATIVE) 08/03/19 21:46 Urine Bilirubin Negative (NEGATIVE) 08/03/19 21:46 Urine Urobilinogen Normal (NORMAL) 08/03/19 21:46 Ur Leukocyte Esterase Negative (NEGATIVE) 08/03/19 21:46 Urine RBC 0-2 /HPF (0-3) 08/03/19 21:46 Urine WBC None seen /HPF (0-5) 08/03/19 21:46 Ur Squamous Epith Cells Rare /HPF (NEGATIVE) 08/03/19 21:46 Urine Bacteria Negative /HPF (NEGATIVE) 08/03/19 21:46 Ur Culture Indicated? No/not indicated 08/03/19 21:46 Opioid - Opioid Risk Tool Total: 0 Total Score Risk Category: Low Risk - Diagnosis Discharge Problem: Acute respiratory distress, Hypoxemia, COPD with acute exacerbation, Acceler ated hypertension, Chronic kidney disease (CKD) Congestive heart failure, acute Qualifiers: Heart failure type: unspecified Qualified Code(s): I50.9 - Heart failure, unspecified Acute gout Qualifiers: Gout site: foot Gout etiology: due to renal impairment - Discharge Plan Disposition: ADMITTED INPATIENT Condition: Stable
[2019-08-03] MEDS ORDERED: DUONEB 0.5 MG/3 MG ONE (21:09)
[2019-08-03 21:17] LABS: BASOPHILS % (AUTO) 0.4 % (0.2-1.0); EOSINOPHILS # (AUTO) 0.1 x10^3/uL (0.0-0.2); EOSINOPHILS % (AUTO) 0.8 % (0.9-2.9); HEMATOCRIT 34.4 % (36.0-47.0); HEMOGLOBIN 11.1 g/dL (12.0-16.0); LYMPHOCYTES # (AUTO) 1.1 X10^3/uL (1.3-2.9); MEAN CORPUSCULAR HEMOGLOBIN 29.5 pg (27.0-34.0); MEAN CORPUSCULAR HGB CONC 32.2 g/dL (33.0-35.0); MEAN CORPUSCULAR VOLUME 91.6 fL (80.0-100.0); MEAN PLATELET VOLUME 7.8 fL (7.4-11.0); MONOCYTES # (AUTO) 1.6 x10^3/uL (0.3-0.8); MONOCYTES % (AUTO) 14.2 % (0.0-13.0); NEUTROPHILS # (AUTO) 8.1 x10^3/uL (2.2-4.8); NEUTROPHILS % (AUTO) 74.6 % (42.0-75.0); PLATELET COUNT 358 X10^3/uL (150.0-450.0); RED BLOOD COUNT 3.75 X10^6/uL (3.5-5.4); RED CELL DISTRIBUTION WIDTH 18.4 % (11.6-16.5); WHITE BLOOD COUNT 10.9 X10^3/uL (3.6-10.0)
[2019-08-03 21:29] LABS: BLOOD UREA NITROGEN 55 mg/dL (7-18); CALCIUM 8.8 mg/dL (8.5-10.1); CARBON DIOXIDE 32.2 mmol/L (21-32); CHLORIDE 102 mmol/L (98-107); COR NA(FOR HYPERGLY) 142 mmol/L (136-145); CREATININE 2.38 mg/dL (0.55-1.02); SODIUM 141 mmol/L (136-145); TROPONIN I 0.04 ng/mL (0-1.5); eGFR NON BLACK RACES 21 (>60)
[2019-08-03 21:34] LABS: ALANINE AMINOTRANSFERASE 21 Units/L (12-78); ALBUMIN 3.4 g/dL (3.4-5.0); ALKALINE PHOSPHATASE 113 Units/L (46-116); ASPARTATE AMINO TRANSFERASE 18 Units/L (15-37); CKMB % 0.9 % (<4); CREATINE KINASE 108 Units/L (26-192); CREATINE KINASE MB < 1.0 ng/mL (0-4.0); MAGNESIUM 2.3 mg/dL (1.7-2.9); TOTAL PROTEIN 8.5 g/dL (6.4-8.2); URIC ACID 10.4 mg/dL (2.6-6.0)
[2019-08-03 21:55] LABS: BILIRUBIN,URINE NEGATIVE (NEGATIVE); BLOOD/HEMOGLOBIN,URINE 1+ (NEGATIVE); GLUCOSE, URINE NEGATIVE (NEGATIVE); KETONES,URINE NEGATIVE (NEGATIVE); LEUKOCYTE ESTERASE ,URINE NEGATIVE (NEGATIVE); NITRITES,URINE NEGATIVE (NEGATIVE); PROTEIN,URINE 2+ (NEGATIVE); UROBILINOGEN,URINE NORMAL (NORMAL)
[2019-08-03 22:05] LABS: APPEARANCE,URINE CLEAR (CLEAR); BACTERIA,URINE NEGATIVE /HPF (NEGATIVE); COLOR,URINE YELLOW (YELLOW); RBC,URINE 0-2 /HPF (0-3); SQUAMOUS EPITHELIAL CELL,UR RARE /HPF (NEGATIVE)
[2019-08-03] MEDS ORDERED: COLCRYS TAB 0.6 MG ONE (22:13)
[2019-08-03] MEDS: COLCRYS TAB 0.6 MG PO SCH (22:16)
[2019-08-03] MEDS ORDERED: LEVAQUIN PREMIX IV 250 MG 250 MG/50 ML BAG IV ONE ×2 (22:47→23:00)
[2019-08-03] MEDS ORDERED: FORTAZ or TAZICEF VIAL INJ IVP SCH (23:00)
--- NOTE | 2019-08-04 00:13 | RAD ---
AP chest. Indication: Shortness of breath Comparison: 02/21/2019 Findings: Heart size enlarged. Trachea is midline. Chronic pulmonary vascular congestion is noted without focal airspace opacity, pleural effusion or pneumothorax. No acute osseous abnormality. Impression: Stable cardiomegaly and chronic pulmonary vascular congestion without evidence of acute airspace disease or CHF. Reported By:
[2019-08-04 00:50] VITALS: BMI 42.5
[2019-08-04] MEDS ORDERED: PEPCID 20 MG IV PREMIX* 20 MG/50 ML BAG IV ONE (01:05)
[2019-08-04] MEDS ORDERED: ULTRAM ONE (01:05)
[2019-08-04] MEDS ORDERED: NS 250 ML IV 250 ML IV ONE (01:06)
[2019-08-04] MEDS ORDERED: FORTAZ or TAZICEF VIAL INJ ONE (01:06)
[2019-08-04] MEDS ORDERED: NS 250 ML IV 250 ML IV PRN (01:08)
[2019-08-04] MEDS: DUONEB 0.5 MG/3 MG NEB SCH ×6 (01:10→20:15)
[2019-08-04] MEDS: ULTRAM PO PRN ×2 (01:29→22:55)
[2019-08-04] MEDS: PEPCID 20 MG IV PREMIX* 20 MG/50 ML BAG IV SCH ×2 (01:32→08:55)
[2019-08-04 05:41] LABS: BASOPHILS % (AUTO) 0 % (0.2-1.0); EOSINOPHILS % (AUTO) 0.1 % (0.9-2.9); HEMATOCRIT 32.3 % (36.0-47.0); HEMOGLOBIN 10.4 g/dL (12.0-16.0); LYMPHOCYTES # (AUTO) 0.8 X10^3/uL (1.3-2.9); LYMPHOCYTES % (AUTO) 8.1 % (21.0-51.0); MEAN CORPUSCULAR HEMOGLOBIN 29.5 pg (27.0-34.0); MEAN CORPUSCULAR HGB CONC 32.1 g/dL (33.0-35.0); MEAN CORPUSCULAR VOLUME 91.9 fL (80.0-100.0); MEAN PLATELET VOLUME 8.1 fL (7.4-11.0); MONOCYTES # (AUTO) 0.4 x10^3/uL (0.3-0.8); MONOCYTES % (AUTO) 4.2 % (0.0-13.0); NEUTROPHILS # (AUTO) 8.5 x10^3/uL (2.2-4.8); NEUTROPHILS % (AUTO) 87.6 % (42.0-75.0); PLATELET COUNT 333 X10^3/uL (150.0-450.0); RED BLOOD COUNT 3.52 X10^6/uL (3.5-5.4); RED CELL DISTRIBUTION WIDTH 17.9 % (11.6-16.5); WHITE BLOOD COUNT 9.7 X10^3/uL (3.6-10.0)
[2019-08-04 05:54] LABS: ALBUMIN 2.9 g/dL (3.4-5.0); CALCIUM 8.4 mg/dL (8.5-10.1); CARBON DIOXIDE 31.3 mmol/L (21-32); COR CA(FOR HYPOALB) 9.3 mg/dL (8.5-10.1); CREATININE 2.34 mg/dL (0.55-1.02); TOTAL PROTEIN 7.8 g/dL (6.4-8.2)
[2019-08-04 07:26] LABS: ABG BASE EXCESS 6.8 mmol/L (-2.0-2.0)
[2019-08-04 07:27] LABS: ABG HCO3 34.8 mmol/L (22-26)
[2019-08-04 07:28] LABS: ABG ALLEN TEST POS
--- NOTE | 2019-08-04 07:53 | RAD ---
HISTORY: Chest pain and CHF. Study: Single portable view chest. Comparison: 08/04/2019. Findings: The trachea is midline. The cardiac silhouette is enlarged without evidence for over CHF. The lungs are clear without focal infiltrate or effusion. The bony thorax is unremarkable. IMPRESSION: 1. Enlarged cardiac silhouette without definitive cardiopulmonary process seen. Lungs appear relatively clear. No evidence for florid pulmonary edema or CHF is seen. Reported By:
[2019-08-04] MEDS: SOLU-Medrol 40 MG VIAL IVP SCH ×2 (08:30→16:17)
[2019-08-04] MEDS: LASIX IVP SCH ×2 (08:54→21:04)
[2019-08-04] MEDS ORDERED: INSULIN DEGLUDEC 90 UNIT subcut SCH (09:00)
[2019-08-04] MEDS: COZAAR PO SCH (10:01)
[2019-08-04] MEDS: COREG TAB 12.5 MG PO SCH ×2 (10:01→21:04)
[2019-08-04] MEDS: COLCRYS TAB 0.6 MG PO SCH (10:01)
[2019-08-04] MEDS: PRAVACHOL PO SCH (10:02)
[2019-08-04] MEDS: MORPHINE SULFATE INJ 2 MG INJ IVP SCH ×3 (10:38→22:55)
[2019-08-04] MEDS: LOVENOX INJ 30 MG SYR SC SCH (10:47)
[2019-08-04] MEDS: HumuLIN R SUBCUT PRN ×2 (16:16→21:11)
[2019-08-04] MEDS ORDERED: MILK OF MAGNESIA PO SCH (21:00)
[2019-08-04] MEDS ORDERED: FORTAZ or TAZICEF VIAL INJ IVP SCH (21:00)
[2019-08-04] MEDS: COLACE CAP 100 MG PO SCH (21:04)
--- NOTE | 2019-08-04 21:57 | DR.H&P ---
H&P - History & Physical for Day of: H&P Date: 08/03/19 - Chief Complaint Chief Complaint: SOB, LOWER EXTREMITY EDEMA - History of Present Illness History of Present Illness: IS A 69 YEAR OLD PATIENT OF [facility] WHO PRESENTED TO THE ER VIA EMS WITH REPORTS OF SHORTNESS OF BREATH AND DIFFICULTY BREATHING. ON ARRIVAL TO SCENE, EMS REPORTED THAT HER OXYGEN SATURATIONS WERE 66% ON 2 LITERS NASAL CANNULA. PATIENT COMPLAINED OF LOWER EXTREMITY SWELLING. SHE DENIES USING HER NEBULIZER TREATMENTS TODAY. ON ARRIVAL TO THE ER, VITALS WERE 98.6-82-22-96%-235/107. LABS WERE OBTAINED. ABNORMAL LAB VALUES INCLUDE THE FOLLOWING: WBC 10.9, HGB 11.1, HCT 34.4, CARBON DIOXIDE 32.2, BUN 55, CREATININE 2.38, GLUCOSE 134, URIC ACID 10.4, TOTAL BILI 1.10, BNP 1130, TOTAL PROTEIN 8.5, GLOBULIN 5.1. ABG OBTAINED AND REVEALED: PH 7.430, PC02 50.0, P02 65.0, HC03 33.2, 02 SATURATION 93.0, BASE EXCESS 7.6. EKG OBTAINED AND REVEALED SINUS RHYTHM WITH HR 81. A CHEST XRAY WAS OBTAINED AND REVEALED: Stable cardiomegaly and chronic pulmonary vascular congestion without evidence of acute airspace disease or CHF. SHE WAS GIVEN A DUONEB, LASIX 40MG IV X 1, SOLU-MEDROL 125MG IV X 1, CATAPRES 0.2MG PO X 1, AND LEVAQUIN 250MG IV X 1 DOSE. SHE WAS ADMITTED FOR FURTHER EVALUATION AND TREATMENT OF ACUTE CHF, COPD EXACERBATION, AND RESPIRATORY DISTRESS. WE WILL START RESPIRATORY TREATMENTS, FORTAZ 1G IV AT BEDTIME, LASIX 40MG IV BID, SOLU-MEDROL 80MG IV Q8H, HUMULIN R SLIDIDNG SCALE, PEPCID IV, AND WE WILL RESUME HOME MEDICATIONS. OTHERWISE, WE WILL FOLLOW UP WITH AM LABS AND CONTINUE TO MONITOR. - Past Medical History Past Medical History: Hypertension, Diabetes, Asthma, Arthritis - Past Surgical History Surgical History: Cholecystectomy - Family History Family Medical History: [place], Coronary Artery Disease - Social History Does patient currently use any type of tobacco product: No Have you used tobacco products in the last 12 months: No Type of Tobacco Use: None Does any household member use tobacco: No Alcohol Use: None Drug Use: None Prescription drug monitoring program results: PDMP was not reviewed - Medications Home Medications: No Known Drug Allergies Allergy (Verified 02/18/19 10:55) - Review of Systems Constitutional: Weakness. denies: Fever, Chills Eyes: No Symptoms Reported ENT: No Symptoms Reported Respiratory: See HPI, Cough, Shortness of Breath, SOB with Excertion Cardiovascular: Edema (BILATERAL LOWER EXTREMITIES ) Gastrointestinal: No Symptoms Reported Genitourinary: No Symptoms Reported Musculoskeletal: No Symptoms Reported Skin: No Symptoms Reported Neurological: Weakness - Physical Exam Vital Signs: Temperature 97.8 F Pulse Rate [Brachial] 80 Pulse Rate 51 Respiratory Rate 23 Blood Pressure [Left Arm] 196/81 Blood Pressure [Right Arm] 147/71 Blood Pressure 131/61 O2 Sat by Pulse Oximetry 97 Oriented: Normal Eyes: Normal Ear: Normal Nose: Normal Throat: Normal Respiratory: Diminished Throughout Cardiovascular: Edema (LOWER EXTREMITY 3+ PITTING EDEMA ). negative: S3, S4, Murmur : Normal Auscultation: Bowel Sounds: Normal Palpation: Normal Tenderness: Diffuse Skin: Normal Musculoskeletal: Normal Psychiatric: Normal Mood Description: Calm Affect: Normal Speech Pattern: Clear - Assessment/Plan (1) Congestive heart failure, acute Qualifiers: Heart failure type: unspecified Qualified Code(s): I50.9 - Heart failure, unspecified Status: Acute Plan: ADMIT, IV LASIX, RESPIRATORY TX, SUPPLEMENTAL OXYGEN, CONTINUE TO MONITOR (2) COPD with acute exacerbation Status: Acute Plan: ADMIT, IV LASIX, SOLU-MEDROL IV, IV ANTIBIOTICS, RESPIRATORY TX, SUPPLEMENTAL OXYGEN, CONTINUE TO MONITOR (3) Acute respiratory distress Status: Acute (4) Accelerated hypertension Status: Acute - Allergies Allergies/Adverse Reactions: Allergies Allergy/AdvReac Type Severity Reaction Status Date / Time No Known Drug Allergies Allergy Verified 02/18/19 10:55
[2019-08-05] MEDS: SOLU-Medrol 40 MG VIAL IVP SCH ×3 (01:06→17:47)
[2019-08-05] MEDS: DUONEB 0.5 MG/3 MG NEB SCH ×7 (01:35→20:30)
[2019-08-05] MEDS: MORPHINE SULFATE INJ 2 MG INJ IVP SCH ×4 (04:25→21:38)
[2019-08-05] MEDS: HumuLIN R SUBCUT PRN ×4 (05:54→21:42)
--- NOTE | 2019-08-05 06:11 | RAD ---
HISTORY: Shortness of breath Study: Chest AP portable Comparison: 08/04/2019 Findings: The heart remains enlarged. Mild pulmonary venous congestion is present. No interstitial edema, alveolar edema, alveolar infiltrates, or pleural effusions are identified. The bony thorax is unremarkable. IMPRESSION: Continued cardiomegaly with mild pulmonary venous congestion No infiltrates Reported By:
[2019-08-05 06:13] LABS: BASOPHILS % (AUTO) 0.2 % (0.2-1.0); HEMATOCRIT 33.6 % (36.0-47.0); HEMOGLOBIN 10.5 g/dL (12.0-16.0); LYMPHOCYTES # (AUTO) 0.5 X10^3/uL (1.3-2.9); LYMPHOCYTES % (AUTO) 4.4 % (21.0-51.0); MEAN CORPUSCULAR HEMOGLOBIN 29.3 pg (27.0-34.0); MEAN CORPUSCULAR HGB CONC 31.3 g/dL (33.0-35.0); MEAN CORPUSCULAR VOLUME 93.6 fL (80.0-100.0); MONOCYTES # (AUTO) 0.6 x10^3/uL (0.3-0.8); MONOCYTES % (AUTO) 4.7 % (0.0-13.0); NEUTROPHILS # (AUTO) 10.9 x10^3/uL (2.2-4.8); NEUTROPHILS % (AUTO) 90.7 % (42.0-75.0); PLATELET COUNT 359 X10^3/uL (150.0-450.0); RED BLOOD COUNT 3.59 X10^6/uL (3.5-5.4); RED CELL DISTRIBUTION WIDTH 18.1 % (11.6-16.5)
[2019-08-05 06:36] LABS: ALBUMIN 2.5 g/dL (3.4-5.0); CALCIUM 8.1 mg/dL (8.5-10.1); CARBON DIOXIDE 32.5 mmol/L (21-32); COR CA(FOR HYPOALB) 9.3 mg/dL (8.5-10.1); CREATININE 2.97 mg/dL (0.55-1.02); TOTAL PROTEIN 7.3 g/dL (6.4-8.2)
[2019-08-05 06:59] LABS: PLATELET MORPHOLOGY COMMENT NORMAL (NORMAL)
[2019-08-05] MEDS ORDERED: MILK OF MAGNESIA PO SCH (09:00)
[2019-08-05] MEDS: COREG TAB 12.5 MG PO SCH ×2 (09:15→21:36)
[2019-08-05] MEDS: PEPCID 20 MG IV PREMIX* 20 MG/50 ML BAG IV SCH (09:16)
[2019-08-05] MEDS: COZAAR PO SCH (09:16)
[2019-08-05] MEDS: LOVENOX INJ 30 MG SYR SC SCH (09:17)
[2019-08-05] MEDS: PRAVACHOL PO SCH (09:29)
[2019-08-05] MEDS: NS 1000 ML 1,000 ML IV SCH (10:48)
--- NOTE | 2019-08-05 19:10 | PCM.PROG ---
Progress Note - Progress Note for Day of Date of Exam: 08/05/19 - Subjective Subjective: WAS ADMITTED FOR TREATMENT OF ACUTE CHF, COPD EXACERBATION, AND RESPIRATORY DISTRESS. TODAY, SHE IS ALERT AND ORIENTED, LYING IN BED ON MORNING ROUNDS. SHE CONTINUES WITH COMPLAINTS OF MILD SHORTNESS OF BREATH, BUT REPORTS IMPROVEMENT SINCE YESTERDAY. ON EXAMINATION, HEART IS REGUL AR IN RATE AND RHYTHM. BILATERAL LUNGS ARE NOTED WIT HDIMINISHED LUNG SOUNDS THROUGHOUT. ABDOMEN IS ROUND, SOFT, AND NON-TENDER. NORMAL BOWEL SOUNDS ARE NOTED IN ALL QUADRANTS. BILATERAL LOWER EXTREMITIES ARE NOTED WITH 1+ PITTING EDEMA. HER VITALS THIS MORNING ARE: 97.7-54-18-100%NC-132/63. LABS WERE OBTAINED. ABNORMAL LAB VALUES INCLUDE THE FOLLOWING: WBC 12.0, HGB 10.5, HCT 33.6, CARBON DIOXIDE 32.5, BUN 78, CREATININE 2.97, GLUCOSE 361, CALCIUM 8.1, BNP 881, ALBUMIN 2.5, GLOBULIN 4.8. BLOOD AND URINE CULTURE PENDING. A CHES XRAY WAS OBTAINED THIS MORNING AND REVEALED: Continued cardiomegaly with mild pulmonary venous congestion. No infiltrates. SHE IS CURRENTLY RECEIVING LASIX 40MG IV BID, IV FORTAZ, RESPIRATORY TREATMENTS, AND HOME MEDICATIONS WERE RESUMED. TODAY, WE WILL DISCONTINUE THE LASIX DUE TO INCREASED CREATININE AND START NORMAL SALINE AT 75ML/HR. OTHERWISE, WE PLAN TO FOLLOW UP WITH AM LABS AND CHEST XRAY AND CONTINUE TO MONITOR. - Past Medical Family Social History Past Med/Fam/Surg Hx: No changes since H&P Allergies: Allergies No Known Drug Allergies Allergy (Verified 02/18/19 10:55) - Review of Systems ROS: No change since H&P - Vital Signs and I&O's Vital Signs: Temperature 97.7 F Pulse Rate [Brachial] 80 Pulse Rate 55 Respiratory Rate 31 Blood Pressure [Left Arm] 196/81 Blood Pressure [Right Arm] 147/71 Blood Pressure 127/61 O2 Sat by Pulse Oximetry 96 Intake and Output: Intake & Output 08/03/19 08/04/19 08/05/19 08/06/19 11:59 11:59 11:59 11:59 Intake Total 150 / 150 752 / 752 1670 / 1670 Output Total 1000 / 1000 1000 / 1000 400 / 400 Balance -850 / -850 -248 / -248 1270 / 1270 - Physical Exam Oriented: Normal Eyes: Normal Ear: Normal Nose: Normal Throat: Normal Respiratory: Generalized, Diminished Cardiovascular: Edema (LOWER EXTREMITY 1+ PITTING EDEMA ). negative: S3, S4, Murmur : Normal Auscultation: Bowel Sounds: Normal Palpation: Normal Tenderness: Diffuse Skin: Normal Musculoskeletal: Normal Psychiatric: Normal Mood Description: Calm Affect: Normal Speech Pattern: Appropriate - Laboratory and Diagnostics Result Diagrams: 08/05/19 05:40 08/05/19 05:40 Labs: 08/03/19 23:12 Blood Blood Culture - Preliminary 08/04/19 02:11 Urine,Clean Catch Urine Culture - Preliminary Laboratory WBC 12.0 X10^3/uL (3.6-10.0) H 08/05/19 05:40 RBC 3.59 X10^6/uL (3.5-5.4) 08/05/19 05:40 Hgb 10.5 g/dL (12.0-16.0) L 08/05/19 05:40 Hct 33.6 % (36.0-47.0) L 08/05/19 05:40 MCV 93.6 fL (80.0-100.0) 08/05/19 05:40 MCH 29.3 pg (27.0-34.0) 08/05/19 05:40 MCHC 31.3 g/dL (33.0-35.0) L 08/05/19 05:40 RDW 18.1 % (11.6-16.5) H 08/05/19 05:40 Plt Count 359 X10^3/uL (150.0-450.0) 08/05/19 05:40 Plt Count Comment Adequate (ADEQUATE) 08/05/19 05:40 MPV 8.0 fL (7.4-11.0) 08/05/19 05:40 Neut % (Auto) 90.7 % (42.0-75.0) H 08/05/19 05:40 Lymph % (Auto) 4.4 % (21.0-51.0) L 08/05/19 05:40 [place] % (Auto) 4.7 % (0.0-13.0) 08/05/19 05:40 Eos % (Auto) 0.0 % (0.9-2.9) L 08/05/19 05:40 Baso % (Auto) 0.2 % (0.2-1.0) 08/05/19 05:40 Neut # (Auto) 10.9 x10^3/uL (2.2-4.8) H 08/05/19 05:40 Lymph # (Auto) 0.5 X10^3/uL (1.3-2.9) L 08/05/19 05:40 [place] # (Auto) 0.6 x10^3/uL (0.3-0.8) 08/05/19 05:40 Eos # (Auto) 0.0 x10^3/uL (0.0-0.2) 08/05/19 05:40 Baso # (Auto) 0.0 X10^3/uL (0.0-0.1) 08/05/19 05:40 Absolute Nucleated RBC 0.1 /100WBC 08/05/19 05:40 Total Counted 100 08/05/19 05:40 Neutrophils % (Manual) 92 % (39-76) H 08/05/19 05:40 Lymphocytes % (Manual) 6 % (13-43) L 08/05/19 05:40 Monocytes % (Manual) 2 % (4-9) L 08/05/19 05:40 Nucleated RBCs 2 08/05/19 05:40 Plt Morphology Comment Normal (NORMAL) 08/05/19 05:40 RBC Morphology Normal (NORMAL) 08/05/19 05:40 PT 15.5 SECONDS (11.8-14.3) 08/03/19 21:06 INR Target Range - 08/03/19 21:06 INR 1.28 (0.8-1.3) 08/03/19 21:06 APTT 27.1 SECONDS (22.9-36.5) 08/03/19 21:06 PTT Comment - 08/03/19 21:06 Sample Site Lr 08/04/19 07:20 ABG pH 7.330 (7.35-7.45) L 08/04/19 07:20 ABG pCO2 66.0 mmHg (35.0-45.0) H* 08/04/19 07:20 ABG pO2 72.0 mmHg (80.0-100.0) L 08/04/19 07:20 ABG HCO3 34.8 mmol/L (22-26) H* 08/04/19 07:20 ABG O2 Saturation 93.0 % (90-100) 08/04/19 07:20 ABG Base Excess 6.8 mmol/L (-2.0-2.0) H 08/04/19 07:20 Aakash Test Pos 08/04/19 07:20 A-a Gradient 202.0 mmHg 08/04/19 07:20 FiO2 50.0 08/04/19 07:20 Blood Gas Comments Pt [email or web address] 08/04/19 07:20 Sodium 139 mmol/L (136-145) 08/05/19 05:40 Corrected Sodium 145 mmol/L (136-145) 08/05/19 05:40 Potassium 4.8 mmol/L (3.5-5.1) 08/05/19 05:40 Chloride 100 mmol/L (98-107) 08/05/19 05:40 Carbon Dioxide 32.5 mmol/L (21-32) H 08/05/19 05:40 BUN 78 mg/dL (7-18) H 08/05/19 05:40 Creatinine 2.97 mg/dL (0.55-1.02) H 08/05/19 05:40 Est GFR (MDRD) Af Amer 20 (>60) L 08/05/19 05:40 Est GFR (MDRD) Non-Af 17 (>60) L 08/05/19 05:40 Glucose 361 mg/dL (65-99) H 08/05/19 05:40 POC Glucose (mg/dL) 298 mg/dL (65-99) H 08/05/19 13:27 Uric Acid 10.4 mg/dL (2.6-6.0) H 08/03/19 21:06 Calcium 8.1 mg/dL (8.5-10.1) L 08/05/19 05:40 Corrected Calcium 9.3 mg/dL (8.5-10.1) 08/05/19 05:40 Magnesium 2.3 mg/dL (1.7-2.9) 08/03/19 21:06 Total Bilirubin 0.50 mg/dL (0.2-1.0) 08/05/19 05:40 AST 16 Units/L (15-37) 08/05/19 05:40 ALT 14 Units/L (12-78) 08/05/19 05:40 Alkaline Phosphatase 92 Units/L (46-116) 08/05/19 05:40 Creatine Kinase 108 Units/L (26-192) 08/03/19 21:06 CK-MB (CK-2) < 1.0 ng/mL (0-4.0) 08/03/19 21:06 CK/CKMB % Calc 0.9 % (<4) 08/03/19 21:06 Troponin I 0.04 ng/mL (0-1.5) 08/03/19 21:06 B-Natriuretic Peptide 881 pg/mL (0-79) H* 08/05/19 05:40 Total Protein 7.3 g/dL (6.4-8.2) 08/05/19 05:40 Albumin 2.5 g/dL (3.4-5.0) L 08/05/19 05:40 Globulin 4.8 g/dL (2.5-4.5) H 08/05/19 05:40 Albumin/Globulin Ratio 0.5 Ratio (1.1-2.1) L 08/05/19 05:40 Specimen Type Catherized urine 08/03/19 21:46 Urine Color Yellow (YELLOW) 08/03/19 21:46 Urine Appearance Clear (CLEAR) 08/03/19 21:46 Urine pH 6.0 (5.0 - 8.0) 08/03/19 21:46 Ur Specific [place] 1.005 (1.000-1.030) 08/03/19 21:46 Urine Protein 2+ (NEGATIVE) 08/03/19 21:46 Urine Glucose (UA) Negative (NEGATIVE) 08/03/19 21:46 Urine Ketones Negative (NEGATIVE) 08/03/19 21:46 Urine Occult Blood 1+ (NEGATIVE) 08/03/19 21:46 Urine Nitrite Negative (NEGATIVE) 08/03/19 21:46 Urine Bilirubin Negative (NEGATIVE) 08/03/19 21:46 Urine Urobilinogen Normal (NORMAL) 08/03/19 21:46 Ur Leukocyte Esterase Negative (NEGATIVE) 08/03/19 21:46 Urine RBC 0-2 /HPF (0-3) 08/03/19 21:46 Urine WBC None seen /HPF (0-5) 08/03/19 21:46 Ur Squamous Epith Cells Rare /HPF (NEGATIVE) 08/03/19 21:46 Urine Bacteria Negative /HPF (NEGATIVE) 08/03/19 21:46 Ur Culture Indicated? No/not indicated 08/03/19 21:46 - Plan (1) Congestive heart failure, acute Status: Acute Qualifiers: Heart failure type: unspecified Qualified Code(s): I50.9 - Heart failure, unspecified Plan: RESPIRATORY TX, SUPPLEMENTAL OXYGEN, CONTINUE TO MONITOR (2) COPD with acute exacerbation Status: Acute Plan: SOLU-MEDROL IV, IV ANTIBIOTICS, RESPIRATORY TX, SUPPLEMENTAL OXYGEN, CONTINUE TO MONITOR (3) Acute respiratory distress Status: Acute (4) Accelerated hypertension Status: Acute (5) Chronic renal disease Status: Acute Qualifiers: Chronic kidney disease stage: unspecified stage Qualified Code(s): N18.9 - Chronic kidney disease, unspecified Plan: NORMAL SALINE AT 75ML/HR, CONTINUE TO MONITOR
[2019-08-05] MEDS ORDERED: LASIX IVP SCH (21:00)
[2019-08-05] MEDS: COLACE CAP 100 MG PO SCH (21:35)
[2019-08-05] MEDS: FORTAZ or TAZICEF VIAL INJ 1 G in NS 100 ML IV + SPIKE MINIBAG* 100 ML IV SCH (21:37)
[2019-08-05] MEDS: MILK OF MAGNESIA PO SCH (21:38)
[2019-08-05] MEDS: ULTRAM PO PRN (21:55)
[2019-08-06] MEDS: SOLU-Medrol 40 MG VIAL IVP SCH ×3 (00:26→18:17)
[2019-08-06] MEDS: NS 1000 ML 1,000 ML IV SCH ×2 (00:26→21:37)
[2019-08-06] MEDS: DUONEB 0.5 MG/3 MG NEB SCH ×6 (00:53→20:20)
[2019-08-06] MEDS: MORPHINE SULFATE INJ 2 MG INJ IVP SCH ×2 (04:52→10:07)
[2019-08-06 05:04] LABS: BASOPHILS % (AUTO) 0.2 % (0.2-1.0); EOSINOPHILS # (AUTO) 0.1 x10^3/uL (0.0-0.2); EOSINOPHILS % (AUTO) 0.4 % (0.9-2.9); HEMATOCRIT 34.3 % (36.0-47.0); HEMOGLOBIN 10.7 g/dL (12.0-16.0); LYMPHOCYTES # (AUTO) 0.1 X10^3/uL (1.3-2.9); MEAN CORPUSCULAR HEMOGLOBIN 28.9 pg (27.0-34.0); MEAN CORPUSCULAR HGB CONC 31.1 g/dL (33.0-35.0); MEAN CORPUSCULAR VOLUME 93.1 fL (80.0-100.0); MEAN PLATELET VOLUME 8.5 fL (7.4-11.0); MONOCYTES # (AUTO) 0.4 x10^3/uL (0.3-0.8); MONOCYTES % (AUTO) 2.5 % (0.0-13.0); NEUTROPHILS # (AUTO) 13.8 x10^3/uL (2.2-4.8); NEUTROPHILS % (AUTO) 95.9 % (42.0-75.0); PLATELET COUNT 384 X10^3/uL (150.0-450.0); RED BLOOD COUNT 3.68 X10^6/uL (3.5-5.4); RED CELL DISTRIBUTION WIDTH 17.5 % (11.6-16.5); WHITE BLOOD COUNT 14.4 X10^3/uL (3.6-10.0)
[2019-08-06 05:12] LABS: ALBUMIN 2.7 g/dL (3.4-5.0); CALCIUM 8.1 mg/dL (8.5-10.1); COR CA(FOR HYPOALB) 9.1 mg/dL (8.5-10.1); CREATININE 3.16 mg/dL (0.55-1.02); TOTAL PROTEIN 7.6 g/dL (6.4-8.2)
[2019-08-06 05:23] LABS: PLATELET MORPHOLOGY COMMENT NORMAL (NORMAL)
[2019-08-06] MEDS: HumuLIN R SUBCUT PRN ×4 (05:51→21:35)
--- NOTE | 2019-08-06 06:51 | RAD ---
HISTORY: Shortness of breath Study: Chest AP portable Comparison: 08/05/2019 Findings: The heart remains enlarged. No congestive heart failure is noted. No acute alveolar infiltrates or pleural effusions are identified. Bony thorax is unremarkable. IMPRESSION: Continued cardiomegaly but without congestive heart failure No acute infiltrates Reported By:
[2019-08-06] MEDS ORDERED: COLCRYS TAB 0.6 MG PO SCH (09:00)
[2019-08-06] MEDS: LOVENOX INJ 30 MG SYR SC SCH (09:58)
[2019-08-06] MEDS: COREG TAB 12.5 MG PO SCH (09:59)
[2019-08-06] MEDS: COZAAR PO SCH (10:00)
[2019-08-06] MEDS: MILK OF MAGNESIA PO SCH ×2 (10:00→20:45)
[2019-08-06] MEDS: PEPCID 20 MG IV PREMIX* 20 MG/50 ML BAG IV SCH (10:01)
[2019-08-06] MEDS: PRAVACHOL PO SCH (10:09)
--- NOTE | 2019-08-06 10:14 | PCM.PROG ---
Progress Note - Progress Note for Day of Date of Exam: 08/06/19 - Subjective Subjective: CAROL WAS ADMITTED FOR TREATMENT OF ACUTE CHF, COPD EXACERBATION, AND RESPIRATORY DISTRESS. TODAY, SHE IS ALERT AND ORIENTED, LYING IN BED ON MORNING ROUNDS. SHE CONTINUES WITH COMPLAINTS OF MILD SHORTNESS OF BREATH. ON EXAMINATION, HEART IS REGULAR IN RATE AND RHYTHM. BILATERAL LUNGS ARE NOTED WIT HDIMINISHED LUNG SOUNDS THROUGHOUT. ABDOMEN IS ROUND, SOFT, AND NON- TENDER. NORMAL BOWEL SOUNDS ARE NOTED IN ALL QUADRANTS. BILATERAL LOWER EXTREMITIES ARE NOTED WITH 1+ PITTING EDEMA. HER VITALS THIS MORNING ARE: 97.5-48-20-96%-139/65. LABS WERE OBTAINED. ABNORMAL LAB VALUES INCLUDE THE FOLLOWING: wbc 14.4, hgb 10.7, hct 34.3, carbon dioxide 33.0, bun 89, creatinine 3.16, glucose 286, calcium 8.1, ast 10, albumin 2.7. BLOOD AND URINE CULTURE PENDING. A CHES XRAY WAS OBTAINED THIS MORNING AND REVEALED: Continued cardiomegaly but without congestive heart failure. No acute infiltrates. SHE IS CURRENTLY RECEIVING NORMAL SALINE AT 75ML/HR, IV FORTAZ, RESPIRATORY TREATMENTS, AND HOME MEDICATIONS WERE RESUMED. TODAY, WE WILL HOLD HER COREG DUE TO PERSISTENT BRADYCARDIA. WE ENCOURAGED PATIENT TO USE THE BIPAP THROUGHOUT THE DAY. OTHERWISE, WE PLAN TO FOLLOW UP WITH AM LABS AND CHEST XRAY AND CONTINUE TO MONITOR. - Past Medical Family Social History Past Med/Fam/Surg Hx: No changes since H&P Allergies: Allergies No Known Drug Allergies Allergy (Verified 02/18/19 10:55) - Review of Systems ROS: No change since H&P - Vital Signs and I&O's Vital Signs: Temperature 97.5 F Pulse Rate [Brachial] 48 Pulse Rate 50 Respiratory Rate 20 Blood Pressure [Left Arm] 139/65 Blood Pressure [Right Arm] 147/71 Blood Pressure 127/61 O2 Sat by Pulse Oximetry 96 Intake and Output: Intake & Output 08/03/19 08/04/19 08/05/19 08/06/19 11:59 11:59 11:59 11:59 Intake Total 150 / 150 752 / 752 3200 / 3200 Output Total 1000 / 1000 1000 / 1000 1000 / 1000 Balance -850 / -850 -248 / -248 2200 / 2200 - Physical Exam Oriented: Normal Eyes: Normal Ear: Normal Nose: Normal Throat: Normal Respiratory: Generalized, Diminished Cardiovascular: Edema (LOWER EXTREMITY 1+ PITTING EDEMA ). negative: S3, S4, Murmur : Normal Auscultation: Bowel Sounds: Normal Palpation: Normal Tenderness: Diffuse Skin: Normal Musculoskeletal: Normal Psychiatric: Normal Mood Description: Calm Affect: Normal Speech Pattern: Appropriate - Laboratory and Diagnostics Result Diagrams: 08/06/19 04:10 08/06/19 04:10 Labs: 08/04/19 02:11 Urine,Clean Catch Urine Culture - Final 08/03/19 23:12 Blood Blood Culture - Preliminary Laboratory WBC 14.4 X10^3/uL (3.6-10.0) H 08/06/19 04:10 RBC 3.68 X10^6/uL (3.5-5.4) 08/06/19 04:10 Hgb 10.7 g/dL (12.0-16.0) L 08/06/19 04:10 Hct 34.3 % (36.0-47.0) L 08/06/19 04:10 MCV 93.1 fL (80.0-100.0) 08/06/19 04:10 MCH 28.9 pg (27.0-34.0) 08/06/19 04:10 MCHC 31.1 g/dL (33.0-35.0) L 08/06/19 04:10 RDW 17.5 % (11.6-16.5) H 08/06/19 04:10 Plt Count 384 X10^3/uL (150.0-450.0) 08/06/19 04:10 Plt Count Comment Adequate (ADEQUATE) 08/06/19 04:10 MPV 8.5 fL (7.4-11.0) 08/06/19 04:10 Neut % (Auto) 95.9 % (42.0-75.0) H 08/06/19 04:10 Lymph % (Auto) 1.0 % (21.0-51.0) L 08/06/19 04:10 [place] % (Auto) 2.5 % (0.0-13.0) 08/06/19 04:10 Eos % (Auto) 0.4 % (0.9-2.9) L 08/06/19 04:10 Baso % (Auto) 0.2 % (0.2-1.0) 08/06/19 04:10 Neut # (Auto) 13.8 x10^3/uL (2.2-4.8) H 08/06/19 04:10 Lymph # (Auto) 0.1 X10^3/uL (1.3-2.9) L 08/06/19 04:10 [place] # (Auto) 0.4 x10^3/uL (0.3-0.8) 08/06/19 04:10 Eos # (Auto) 0.1 x10^3/uL (0.0-0.2) 08/06/19 04:10 Baso # (Auto) 0.0 X10^3/uL (0.0-0.1) 08/06/19 04:10 Absolute Nucleated RBC 0.3 /100WBC 08/06/19 04:10 Total Counted 100 08/06/19 04:10 Neutrophils % (Manual) 94 % (39-76) H 08/06/19 04:10 Lymphocytes % (Manual) 3 % (13-43) L 08/06/19 04:10 Monocytes % (Manual) 3 % (4-9) L 08/06/19 04:10 Nucleated RBCs 2 08/05/19 05:40 Plt Morphology Comment Normal (NORMAL) 08/06/19 04:10 RBC Morphology Normal (NORMAL) 08/06/19 04:10 PT 15.5 SECONDS (11.8-14.3) 08/03/19 21:06 INR Target Range - 08/03/19 21:06 INR 1.28 (0.8-1.3) 08/03/19 21:06 APTT 27.1 SECONDS (22.9-36.5) 08/03/19 21:06 PTT Comment - 08/03/19 21:06 Sample Site Lr 08/04/19 07:20 ABG pH 7.330 (7.35-7.45) L 08/04/19 07:20 ABG pCO2 66.0 mmHg (35.0-45.0) H* 08/04/19 07:20 ABG pO2 72.0 mmHg (80.0-100.0) L 08/04/19 07:20 ABG HCO3 34.8 mmol/L (22-26) H* 08/04/19 07:20 ABG O2 Saturation 93.0 % (90-100) 08/04/19 07:20 ABG Base Excess 6.8 mmol/L (-2.0-2.0) H 08/04/19 07:20 Aakash Test Pos 08/04/19 07:20 A-a Gradient 202.0 mmHg 08/04/19 07:20 FiO2 50.0 08/04/19 07:20 Blood Gas Comments Pt [email or web address] 08/04/19 07:20 Sodium 137 mmol/L (136-145) 08/06/19 04:10 Corrected Sodium 141 mmol/L (136-145) 08/06/19 04:10 Potassium 4.9 mmol/L (3.5-5.1) 08/06/19 04:10 Chloride 100 mmol/L (98-107) 08/06/19 04:10 Carbon Dioxide 33.0 mmol/L (21-32) H 08/06/19 04:10 BUN 89 mg/dL (7-18) H 08/06/19 04:10 Creatinine 3.16 mg/dL (0.55-1.02) H 08/06/19 04:10 Est GFR (MDRD) Af Amer 19 (>60) L 08/06/19 04:10 Est GFR (MDRD) Non-Af 15 (>60) L 08/06/19 04:10 Glucose 286 mg/dL (65-99) H 08/06/19 04:10 POC Glucose (mg/dL) 298 mg/dL (65-99) H 08/05/19 13:27 Uric Acid 10.4 mg/dL (2.6-6.0) H 08/03/19 21:06 Calcium 8.1 mg/dL (8.5-10.1) L 08/06/19 04:10 Corrected Calcium 9.1 mg/dL (8.5-10.1) 08/06/19 04:10 Magnesium 2.3 mg/dL (1.7-2.9) 08/03/19 21:06 Total Bilirubin 0.40 mg/dL (0.2-1.0) 08/06/19 04:10 AST 10 Units/L (15-37) L 08/06/19 04:10 ALT 16 Units/L (12-78) 08/06/19 04:10 Alkaline Phosphatase 94 Units/L (46-116) 08/06/19 04:10 Creatine Kinase 108 Units/L (26-192) 08/03/19 21:06 CK-MB (CK-2) < 1.0 ng/mL (0-4.0) 08/03/19 21:06 CK/CKMB % Calc 0.9 % (<4) 08/03/19 21:06 Troponin I 0.04 ng/mL (0-1.5) 08/03/19 21:06 B-Natriuretic Peptide 881 pg/mL (0-79) H* 08/05/19 05:40 Total Protein 7.6 g/dL (6.4-8.2) 08/06/19 04:10 Albumin 2.7 g/dL (3.4-5.0) L 08/06/19 04:10 Globulin 4.9 g/dL (2.5-4.5) H 08/06/19 04:10 Albumin/Globulin Ratio 0.6 Ratio (1.1-2.1) L 08/06/19 04:10 Specimen Type Catherized urine 08/03/19 21:46 Urine Color Yellow (YELLOW) 08/03/19 21:46 Urine Appearance Clear (CLEAR) 08/03/19 21:46 Urine pH 6.0 (5.0 - 8.0) 08/03/19 21:46 Ur Specific [place] 1.005 (1.000-1.030) 08/03/19 21:46 Urine Protein 2+ (NEGATIVE) 08/03/19 21:46 Urine Glucose (UA) Negative (NEGATIVE) 08/03/19 21:46 Urine Ketones Negative (NEGATIVE) 08/03/19 21:46 Urine Occult Blood 1+ (NEGATIVE) 08/03/19 21:46 Urine Nitrite Negative (NEGATIVE) 08/03/19 21:46 Urine Bilirubin Negative (NEGATIVE) 08/03/19 21:46 Urine Urobilinogen Normal (NORMAL) 08/03/19 21:46 Ur Leukocyte Esterase Negative (NEGATIVE) 08/03/19 21:46 Urine RBC 0-2 /HPF (0-3) 08/03/19 21:46 Urine WBC None seen /HPF (0-5) 08/03/19 21:46 Ur Squamous Epith Cells Rare /HPF (NEGATIVE) 08/03/19 21:46 Urine Bacteria Negative /HPF (NEGATIVE) 08/03/19 21:46 Ur Culture Indicated? No/not indicated 08/03/19 21:46 - Plan (1) Congestive heart failure, acute Status: Acute Qualifiers: Heart failure type: unspecified Qualified Code(s): I50.9 - Heart failure, unspecified Plan: BIPAP, RESPIRATORY TX, SUPPLEMENTAL OXYGEN, CONTINUE TO MONITOR (2) COPD with acute exacerbation Status: Acute Plan: SOLU-MEDROL IV, IV ANTIBIOTICS, RESPIRATORY TX, SUPPLEMENTAL OXYGEN, CON TINUE TO MONITOR (3) Acute respiratory distress Status: Acute (4) Accelerated hypertension Status: Acute Plan: CONTINUE HOME MEDS (5) Chronic renal disease Status: Acute Qualifiers: Chronic kidney disease stage: unspecified stage Qualified Code(s): N18.9 - Chronic kidney disease, unspecified Plan: NORMAL SALINE AT 75ML/HR, CONTINUE TO MONITOR
[2019-08-06] MEDS: FORTAZ or TAZICEF VIAL INJ 1 G in NS 100 ML IV + SPIKE MINIBAG* 100 ML IV SCH (20:44)
[2019-08-06] MEDS: COLACE CAP 100 MG PO SCH (20:44)
[2019-08-06] MEDS: LASIX IVP SCH (20:44)
[2019-08-06] MEDS: ULTRAM PO PRN (20:45)
[2019-08-06] MEDS ORDERED: INSULIN DEGLUDEC 65 UNIT subcut SCH (21:00)
[2019-08-07] MEDS: SOLU-Medrol 40 MG VIAL IVP SCH ×2 (00:33→08:34)
[2019-08-07] MEDS: DUONEB 0.5 MG/3 MG NEB SCH ×6 (00:50→21:12)
[2019-08-07] MEDS: NS 1000 ML 1,000 ML IV SCH ×3 (04:24→20:43)
[2019-08-07 05:21] LABS: BASOPHILS % (AUTO) 0.3 % (0.2-1.0); HEMATOCRIT 34.7 % (36.0-47.0); HEMOGLOBIN 10.8 g/dL (12.0-16.0); LYMPHOCYTES # (AUTO) 0.3 X10^3/uL (1.3-2.9); LYMPHOCYTES % (AUTO) 2.8 % (21.0-51.0); MEAN CORPUSCULAR HEMOGLOBIN 29.1 pg (27.0-34.0); MEAN CORPUSCULAR HGB CONC 31.2 g/dL (33.0-35.0); MEAN CORPUSCULAR VOLUME 93.2 fL (80.0-100.0); MEAN PLATELET VOLUME 7.9 fL (7.4-11.0); MONOCYTES # (AUTO) 0.3 x10^3/uL (0.3-0.8); MONOCYTES % (AUTO) 2.7 % (0.0-13.0); NEUTROPHILS # (AUTO) 11.2 x10^3/uL (2.2-4.8); NEUTROPHILS % (AUTO) 94.2 % (42.0-75.0); PLATELET COUNT 379 X10^3/uL (150.0-450.0); RED BLOOD COUNT 3.72 X10^6/uL (3.5-5.4); RED CELL DISTRIBUTION WIDTH 17.5 % (11.6-16.5); WHITE BLOOD COUNT 11.9 X10^3/uL (3.6-10.0)
[2019-08-07 05:27] LABS: ALBUMIN 2.8 g/dL (3.4-5.0); CALCIUM 7.9 mg/dL (8.5-10.1); CARBON DIOXIDE 33.2 mmol/L (21-32); COR CA(FOR HYPOALB) 8.9 mg/dL (8.5-10.1); CREATININE 3.14 mg/dL (0.55-1.02); TOTAL PROTEIN 7.5 g/dL (6.4-8.2)
[2019-08-07] MEDS: HumuLIN R SUBCUT PRN ×4 (05:32→20:44)
[2019-08-07 05:43] LABS: BAND NEUTROPHILS % 4 % (0-10); PLATELET MORPHOLOGY COMMENT NORMAL (NORMAL)
--- NOTE | 2019-08-07 07:27 | RAD ---
HISTORY: Shortness of breath Study: Chest AP portable Comparison: 08/06/2019 Findings: The heart remains enlarged. No congestive heart failure is noted. No alveolar infiltrates or pleural effusions are identified. The bony thorax is unremarkable. IMPRESSION: Continued cardiomegaly without congestive heart failure No definite infiltrates Reported By:
[2019-08-07 07:38] LABS: ABG BASE EXCESS 5.7 mmol/L (-2.0-2.0)
[2019-08-07 07:39] LABS: ABG ALLEN TEST POS; ABG HCO3 34.8 mmol/L (22-26)
[2019-08-07] MEDS: MORPHINE SULFATE INJ 2 MG INJ IVP PRN (08:30)
[2019-08-07] MEDS: LASIX IVP SCH ×2 (08:33→20:45)
[2019-08-07] MEDS: COZAAR PO SCH (08:33)
[2019-08-07] MEDS: MILK OF MAGNESIA PO SCH ×2 (08:34→20:45)
[2019-08-07] MEDS: PRAVACHOL PO SCH (08:34)
[2019-08-07] MEDS: LOVENOX INJ 30 MG SYR SC SCH (08:35)
[2019-08-07] MEDS: PEPCID 20 MG IV PREMIX* 20 MG/50 ML BAG IV SCH (08:36)
--- NOTE | 2019-08-07 11:54 | PCM.PROG ---
Progress Note - Progress Note for Day of Date of Exam: 08/07/19 - Subjective Subjective: WAS ADMITTED FOR TREATMENT OF ACUTE CHF, COPD EXACERBATION, AND RESPIRATORY DISTRESS. TODAY, SHE IS ALERT AND ORIENTED, LYING IN BED ON MORNING ROUNDS. SHE CONTINUES WITH COMPLAINTS OF MILD SHORTNESS OF BREATH. STAFF REPORTS THAT SHE UTILIZED THE BIPAP DURING THE DAY, YESTERDAY, BUT REFUSED TO WEAR IT THROUGHOUT THE NIGHT. ON EXAMINATION, HEART IS REGULAR IN RATE AND RHYTHM. BILATERAL LUNGS ARE NOTED WITH DIMINISHED LUNG SOUNDS THROUGHOUT. ABDOMEN IS ROUND, SOFT, AND NON-TENDER. NORMAL BOWEL SOUNDS ARE NOTED IN ALL QUADRANTS. BILATERAL LOWER EXTREMITIES ARE NOTED WITH 1+ PITTING EDEMA. HER VITALS THIS MORNING ARE: 97.5-47-20-94%[place]-152/66. LABS WERE OBTAINED. ABNORMAL LAB VALUES INCLUDE THE FOLLOWING: WBC 11.9, HGB 10.8, HCT 34.7, SODIUM 135, POTASSIUM 5.6, CARBON DIOXIDE 33.2, BUN 102, CREATININE 3.14, GLUCOSE 375, CALCIUM 7.9, AST 11, BNP 423, ALBUMIN 2.8, GLOBULIN 4.7. BLOOD AND URINE CULTURES PENDING. A CHEST XRAY WAS OBTAINED THIS MORNING AND REVEALED: Continued cardiomegaly without congestive heart failure. No definite infiltrates. SHE IS CURRENTLY RECEIVING NORMAL SALINE AT 75ML/HR, IV FORTAZ, RESPIRATORY TREATMENTS, AND HOME MEDICATIONS WERE RESUMED. COREG IS BEING HELD DUE TO BRADYCARDIA. TODAY, WE WILL INCREASE IV FLUIDS TO 150ML/HR. WE ENCOURAGED PATIENT TO USE THE BIPAP THROUGHOUT THE DAY. OTHERWISE, WE PLAN TO FOLLOW UP WITH AM LABS AND CHEST XRAY AND CONTINUE TO MONITOR. - Past Medical Family Social History Past Med/Fam/Surg Hx: No changes since H&P Allergies: Allergies No Known Drug Allergies Allergy (Verified 02/18/19 10:55) - Review of Systems ROS: No change since H&P - Vital Signs and I&O's Vital Signs: Temperature 97.5 F Pulse Rate [Brachial] 47 Pulse Rate 47 Respiratory Rate 20 Blood Pressure [Left Arm] 151/68 Blood Pressure [Right Arm] 152/66 Blood Pressure 127/61 O2 Sat by Pulse Oximetry 98 Intake and Output: Intake & Output 08/04/19 08/05/19 08/06/19 08/07/19 11:59 11:59 11:59 11:59 Intake Total 150 / 150 752 / 752 3200 / 3200 2685 / 2685 Output Total 1000 / 1000 1000 / 1000 1000 / 1000 1100 / 1100 Balance -850 / -850 -248 / -248 2200 / 2200 1585 / 1585 - Physical Exam Oriented: Normal Eyes: Normal Ear: Normal Nose: Normal Throat: Normal Respiratory: Generalized, Diminished Cardiovascular: Edema (LOWER EXTREMITY 1+ PITTING EDEMA ). negative: S3, S4, Murmur : Normal Auscultation: Bowel Sounds: Normal Tenderness: Diffuse Skin: Normal Musculoskeletal: Normal Psychiatric: Normal Mood Description: Calm Affect: Normal Speech Pattern: Appropriate - Laboratory and Diagnostics Result Diagrams: 08/07/19 04:40 08/07/19 04:40 Labs: 08/04/19 02:11 Urine,Clean Catch Urine Culture - Final 08/03/19 23:12 Blood Blood Culture - Preliminary Laboratory WBC 11.9 X10^3/uL (3.6-10.0) H 08/07/19 04:40 RBC 3.72 X10^6/uL (3.5-5.4) 08/07/19 04:40 Hgb 10.8 g/dL (12.0-16.0) L 08/07/19 04:40 Hct 34.7 % (36.0-47.0) L 08/07/19 04:40 MCV 93.2 fL (80.0-100.0) 08/07/19 04:40 MCH 29.1 pg (27.0-34.0) 08/07/19 04:40 MCHC 31.2 g/dL (33.0-35.0) L 08/07/19 04:40 RDW 17.5 % (11.6-16.5) H 08/07/19 04:40 Plt Count 379 X10^3/uL (150.0-450.0) 08/07/19 04:40 Plt Count Comment Adequate (ADEQUATE) 08/07/19 04:40 MPV 7.9 fL (7.4-11.0) 08/07/19 04:40 Neut % (Auto) 94.2 % (42.0-75.0) H 08/07/19 04:40 Lymph % (Auto) 2.8 % (21.0-51.0) L 08/07/19 04:40 [place] % (Auto) 2.7 % (0.0-13.0) 08/07/19 04:40 Eos % (Auto) 0.0 % (0.9-2.9) L 08/07/19 04:40 Baso % (Auto) 0.3 % (0.2-1.0) 08/07/19 04:40 Neut # (Auto) 11.2 x10^3/uL (2.2-4.8) H 08/07/19 04:40 Lymph # (Auto) 0.3 X10^3/uL (1.3-2.9) L 08/07/19 04:40 [place] # (Auto) 0.3 x10^3/uL (0.3-0.8) 08/07/19 04:40 Eos # (Auto) 0.0 x10^3/uL (0.0-0.2) 08/07/19 04:40 Baso # (Auto) 0.0 X10^3/uL (0.0-0.1) 08/07/19 04:40 Absolute Nucleated RBC 0.2 /100WBC 08/07/19 04:40 Total Counted 100 08/07/19 04:40 Neutrophils % (Manual) 90 % (39-76) H 08/07/19 04:40 Band Neutrophils % 4 % (0-10) 08/07/19 04:40 Lymphocytes % (Manual) 4 % (13-43) L 08/07/19 04:40 Monocytes % (Manual) 2 % (4-9) L 08/07/19 04:40 Nucleated RBCs 2 08/05/19 05:40 Plt Morphology Comment Normal (NORMAL) 08/07/19 04:40 RBC Morphology Normal (NORMAL) 08/07/19 04:40 PT 15.5 SECONDS (11.8-14.3) 08/03/19 21:06 INR Target Range - 08/03/19 21:06 INR 1.28 (0.8-1.3) 08/03/19 21:06 APTT 27.1 SECONDS (22.9-36.5) 08/03/19 21:06 PTT Comment - 08/03/19 21:06 Sample Site Right radial 08/07/19 07:32 ABG pH 7.280 (7.35-7.45) L 08/07/19 07:32 ABG pCO2 74.0 mmHg (35.0-45.0) H* 08/07/19 07:32 ABG pO2 87.0 mmHg (80.0-100.0) 08/07/19 07:32 ABG HCO3 34.8 mmol/L (22-26) H* 08/07/19 07:32 ABG O2 Saturation 95.0 % (90-100) 08/07/19 07:32 ABG Base Excess 5.7 mmol/L (-2.0-2.0) H 08/07/19 07:32 Aakash Test Pos 08/07/19 07:32 A-a Gradient 77.0 mmHg 08/07/19 07:32 FiO2 36.0 08/07/19 07:32 Blood Gas Comments [facility] well [facility] 08/07/19 07:32 Sodium 135 mmol/L (136-145) L 08/07/19 04:40 Corrected Sodium 142 mmol/L (136-145) 08/07/19 04:40 Potassium 5.6 mmol/L (3.5-5.1) H 08/07/19 04:40 Chloride 100 mmol/L (98-107) 08/07/19 04:40 Carbon Dioxide 33.2 mmol/L (21-32) H 08/07/19 04:40 BUN 102 mg/dL (7-18) H 08/07/19 04:40 Creatinine 3.14 mg/dL (0.55-1.02) H 08/07/19 04:40 Est GFR (MDRD) Af Amer 19 (>60) L 08/07/19 04:40 Est GFR (MDRD) Non-Af 16 (>60) L 08/07/19 04:40 Glucose 375 mg/dL (65-99) H 08/07/19 04:40 POC Glucose (mg/dL) 285 mg/dL (65-99) H 08/07/19 11:03 Uric Acid 10.4 mg/dL (2.6-6.0) H 08/03/19 21:06 Calcium 7.9 mg/dL (8.5-10.1) L 08/07/19 04:40 Corrected Calcium 8.9 mg/dL (8.5-10.1) 08/07/19 04:40 Magnesium 2.3 mg/dL (1.7-2.9) 08/03/19 21:06 Total Bilirubin 0.30 mg/dL (0.2-1.0) 08/07/19 04:40 AST 11 Units/L (15-37) L 08/07/19 04:40 ALT 17 Units/L (12-78) 08/07/19 04:40 Alkaline Phosphatase 99 Units/L (46-116) 08/07/19 04:40 Creatine Kinase 108 Units/L (26-192) 08/03/19 21:06 CK-MB (CK-2) < 1.0 ng/mL (0-4.0) 08/03/19 21:06 CK/CKMB % Calc 0.9 % (<4) 08/03/19 21:06 Troponin I 0.04 ng/mL (0-1.5) 08/03/19 21:06 B-Natriuretic Peptide 423 pg/mL (0-79) H 08/07/19 04:40 Total Protein 7.5 g/dL (6.4-8.2) 08/07/19 04:40 Albumin 2.8 g/dL (3.4-5.0) L 08/07/19 04:40 Globulin 4.7 g/dL (2.5-4.5) H 08/07/19 04:40 Albumin/Globulin Ratio 0.6 Ratio (1.1-2.1) L 08/07/19 04:40 Specimen Type Catherized urine 08/03/19 21:46 Urine Color Yellow (YELLOW) 08/03/19 21:46 Urine Appearance Clear (CLEAR) 08/03/19 21:46 Urine pH 6.0 (5.0 - 8.0) 08/03/19 21:46 Ur Specific [place] 1.005 (1.000-1.030) 08/03/19 21:46 Urine Protein 2+ (NEGATIVE) 08/03/19 21:46 Urine Glucose (UA) Negative (NEGATIVE) 08/03/19 21:46 Urine Ketones Negative (NEGATIVE) 08/03/19 21:46 Urine Occult Blood 1+ (NEGATIVE) 08/03/19 21:46 Urine Nitrite Negative (NEGATIVE) 08/03/19 21:46 Urine Bilirubin Negative (NEGATIVE) 08/03/19 21:46 Urine Urobilinogen Normal (NORMAL) 08/03/19 21:46 Ur Leukocyte Esterase Negative (NEGATIVE) 08/03/19 21:46 Urine RBC 0-2 /HPF (0-3) 08/03/19 21:46 Urine WBC None seen /HPF (0-5) 08/03/19 21:46 Ur Squamous Epith Cells Rare /HPF (NEGATIVE) 08/03/19 21:46 Urine Bacteria Negative /HPF (NEGATIVE) 08/03/19 21:46 Ur Culture Indicated? No/not indicated 08/03/19 21:46 - Plan (1) Congestive heart failure, acute Status: Acute Qualifiers: Heart failure type: unspecified Qualified Code(s): I50.9 - Heart failure, unspecified Plan: BIPAP, RESPIRATORY TX, SUPPLEMENTAL OXYGEN, CONTINUE TO MONITOR (2) COPD with acute exacerbation Status: Acute Plan: SOLU-MEDROL IV, IV ANTIBIOTICS, RESPIRATORY TX, SUPPLEMENTAL OXYGEN, CONTINUE TO MONITOR (3) Acute respiratory distress Status: Acute (4) Accelerated hypertension Status: Acute Plan: CONTINUE HOME MEDS (5) Chronic renal disease Status: Acute Qualifiers: Chronic kidney disease stage: unspecified stage Qualified Code(s): N18.9 - Chronic kidney disease, unspecified Plan: NORMAL SALINE AT 150ML/HR, CONTINUE TO MONITOR
[2019-08-07] MEDS: FORTAZ or TAZICEF VIAL INJ 1 G in NS 100 ML IV + SPIKE MINIBAG* 100 ML IV SCH (20:43)
[2019-08-07] MEDS: COLACE CAP 100 MG PO SCH (20:44)
[2019-08-08] MEDS: NS 1000 ML 1,000 ML IV SCH ×3 (00:08→22:01)
[2019-08-08] MEDS: DUONEB 0.5 MG/3 MG NEB SCH ×6 (00:58→20:46)
[2019-08-08] MEDS: MORPHINE SULFATE INJ 2 MG INJ IVP PRN ×2 (04:00→17:10)
[2019-08-08] MEDS ORDERED: KLONOPIN TAB 0.5 MG PO SCH (09:00)
[2019-08-08] MEDS: MILK OF MAGNESIA PO SCH ×3 (09:23→21:49)
[2019-08-08] MEDS: COZAAR PO SCH (09:23)
[2019-08-08] MEDS: LOVENOX INJ 30 MG SYR SC SCH ×2 (09:23→09:34)
[2019-08-08] MEDS: PEPCID 20 MG IV PREMIX* 20 MG/50 ML BAG IV SCH (09:25)
[2019-08-08] MEDS: PRAVACHOL PO SCH (09:32)
[2019-08-08] MEDS: LASIX IVP SCH ×2 (09:35→21:48)
[2019-08-08 11:19] LABS: ABG BASE EXCESS 8.1 mmol/L (-2.0-2.0)
[2019-08-08 11:20] LABS: ABG HCO3 36.1 mmol/L (22-26)
[2019-08-08] MEDS: HumuLIN R SUBCUT PRN ×2 (11:59→17:37)
[2019-08-08] MEDS: COLACE CAP 100 MG PO SCH (21:49)
[2019-08-08] MEDS: FORTAZ or TAZICEF VIAL INJ 1 G in NS 100 ML IV + SPIKE MINIBAG* 100 ML IV SCH (21:49)
[2019-08-08] MEDS: ULTRAM PO PRN (21:49)
[2019-08-09] MEDS: MORPHINE SULFATE INJ 2 MG INJ IVP PRN (00:47)
[2019-08-09] MEDS: DUONEB 0.5 MG/3 MG NEB SCH ×3 (01:18→08:00)
[2019-08-09] MEDS: ULTRAM PO PRN (02:50)
[2019-08-09 03:59] VITALS: BP 145/65
[2019-08-09] MEDS: NS 1000 ML 1,000 ML IV SCH (04:29)
--- NOTE | 2019-08-09 06:19 | RAD ---
HISTORY: Shortness of breath Study: Chest AP portable Comparison: 08/07/2019 Findings: The heart remains enlarged. No congestive heart failure is noted. No acute alveolar infiltrates or pleural effusions are identified. The bony thorax is unremarkable. IMPRESSION: Continued cardiomegaly without congestive heart failure Reported By:
[2019-08-09] MEDS: COZAAR PO SCH (08:59)
[2019-08-09] MEDS: PEPCID 20 MG IV PREMIX* 20 MG/50 ML BAG IV SCH (08:59)
[2019-08-09] MEDS: MILK OF MAGNESIA PO SCH (08:59)
[2019-08-09] MEDS: LOVENOX INJ 30 MG SYR SC SCH (08:59)
[2019-08-09] MEDS: PRAVACHOL PO SCH (09:02)
== END 2019-08-09 12:50 | disposition home or self-care (01) | DRG 292 ==
LOC: ER 20:32 → ICU 22:54 → MED/SURG 08-05 16:11
PROVIDERS: ADMIT Internal Medicine; ATTEND Internal Medicine
DX: N18.9 Chronic kidney disease, unspecified; J44.1 Chronic obstructive pulmonary disease with (acute) exacerbation; I50.9 Heart failure, unspecified; I11.0 Hypertensive heart disease with heart failure; M10.379 Gout due to renal impairment, unspecified ankle and foot; R94.31 Abnormal electrocardiogram [ECG] [EKG]
CPT/HCPCS: 36415; 36600; 51702; 71010; 71045; 80053; 81001; 82550; 82553; 82803; 82947; 83735; 83880; 84484; 84550; 85025; 85610; 85730; 87040; 87086; 93005; 94640; 94660; 96365; 96374; 96375; 99284; A4216; A4222; A4618; A7030; S0028; J0713; J1650; J1815; J1940; J1956; J2270; J2920; J2930; J7030; J7050; J7620